=== PATIENT | male | born 1955 | race African-American/Black ===

== ENCOUNTER 2018-11-18 14:55 | Inpatient (IN) ==
[2018-11-18] MEDS ORDERED: MORPHINE IV ONE (15:18)
[2018-11-18] MEDS ORDERED: CLINDAMYCIN 600 MG/D5W 600 MG/50 ML IVPB IV ONE (15:18)
[2018-11-18] MEDS ORDERED: ZOFRAN IV ONE (15:18)
[2018-11-18 16:03] LABS: BASO# 0.01 X1000 (0.0-0.2); BASO% 0.1 % (0.0-0.8); HEMATOCRIT 38.9 % (42.0-52.0); HEMOGLOBIN 14.1 g/dL (14.0-18.0); IMM GRAN# 0.05 X1000 (0.0-0.04); IMM GRAN% 0.3 % (0.0-0.5); LYMPH# 0.74 X1000 (1.2-3.4); MCH 32.7 PG (27-31); MCHC 36.2 g/dL (33-37); MCV 90.3 FL (81-99); MONO# 1.03 X1000 (0.11-0.59); MPV 10.9 FL (7.4-10.4); NEUT# 12.83 X1000 (1.4-6.5); NEUT% 87.6 % (42.2-75.2); PLT 61 X1000 (130-400); RBC 4.31 XMIL (4.7-6.1); RDW 11.2 % (11.5-14.5); WBC 14.66 X1000 (4.8-10.8)
[2018-11-18 16:23] LABS: ESTIMATED GFR > 60
[2018-11-18 16:27] LABS: AGAP 15; ALBUMIN 3.9 g/dL (3.5-5.0); ALKALINE PHOSPHATASE 108 U/L (32-122); BUN 12 mg/dL (8-22); CHLORIDE 82 mmol/L (98-107); COSMO 256; CREATININE 0.8 mg/dL (0.7-1.2); GLUCOSE 282 mg/dL (70-104); GOT 17 U/L (10-34); GPT 19 U/L (10-44); POTASSIUM 4.6 mmol/L (3.5-5.1); SODIUM 122 mmol/L (136-145); TCO2 25 mmol/L (25-35); TOTAL PROTEIN 8.3 g/dL (6.3-8.3)
[2018-11-18] MEDS ORDERED: HUMULIN R IV ONE (16:41)
[2018-11-18] MEDS ORDERED: NS 1,000 ML IV ONE ×2 (16:41→17:31)
[2018-11-18] MEDS ORDERED: HUMULIN R (PARKWAY) ONE (16:42)
[2018-11-18 16:51] LABS: EOS 1 % (1-10); HYPOCHROM 1+; LYMPHS 7 % (21-51); MONO 8 % (1-9); SEGS 84 % (42-75)
[2018-11-18 17:15] LABS: MPV 9.7 FL (7.4-10.4)
--- NOTE | 2018-11-18 17:19 | PROVIDER DOCUMENTATION ---
This chart was entered by Eric Mercedes Scribe, acting as scribe for Leno Ha CRNP. HPI-Musculoskeletal Pain/Inj - GENERAL Chief Complaint: Extremity Pain Stated Complaint: SORE/LESION(s) Time Seen by Provider: 11/18/18 15:04 Source: patient - HX OF PRESENT ILLNESS-MUSKULOSKELTAL Nature of Presenting Problem: 63 yobm presents to ed with cc of right foot swelling, erythema, and pain x 5 days ago. Denies fever. Hx of diabetes but noncompliant with medications. Reports takes psych medications but isn't aware of what kind. Denies any injuries or any other symptoms. Pt non-toxic in appearance. Quality of Pain: reports: aching, other (swelling) Severity in ED: moderate Onset/Duration: 5 days ago Timing: still present Modifying Factors: improves with: nothing Any recent injury?: No Locality of Occurance: Home Similar Symptoms Previously?: No Recently seen or treated by another doctor?: No Review of Systems - Adult - REVIEW OF SYSTEMS - ADULT Constitutional: denies: chills, fever, fatique Eyes: reports: no symptoms reported Ears, Nose, Mouth & Throat: reports: no symptoms reported Cardiovascular: denies: chest pain, irregular heart rate, syncope Respiratory: reports: no symptoms reported Gastrointestinal: reports: no symptoms reported Genitourinary: reports: no symptoms reported Musculoskeletal: reports: see HPI, other (right foot swelling and pain). denies: joint pain, joint swelling Integumentary: denies: hair loss, itching, mole changes, nail changes, rash Neurological: denies: loss of balance, numbness, seizure Psychiatric: denies: anxiety, emotional problems, insomnia, panic attacks Endocrine: reports: no symptoms reported Hematologic/Lymphatic: reports: no symptoms reported Allergic/Immunologic: reports: no symptoms reported All Other Systems: Reviewed and Negative Past History - Adult - PAST MEDICAL HISTORY-ADULT Review of Records: reports: Nursing Assessment Review, Medications Reviewed Major Childhood Illnesses: reports: denies history Cardiovascular: reports: HTN Respiratory: reports: denies history Gastrointestinal: reports: denies history Obstetrical/Gynecological: reports: denies history Genitourinary: reports: denies history Musculoskeletal: reports: denies history Neurological: reports: denies history Psychiatric: reports: schizophrenia Endocrine/Immune: reports: Diabetes Other Conditions: reports: denies history - PRIOR SURGERIES/PROCEDURES Surgical/Procedure History: reports: reviewed, not pertinent - IMMUNIZATION STATUS Childhood Immunizations: See Nurse Assessment Flu Vaccine: See Nurse Assessment - FAMILY HISTORY Family History: reviewed, not pertinent - SOCIAL HISTORY Smoking: cigarettes, less than 1 pack/day Provider spent 3-5 mins advising pt. on dangers of tobacco.: Discussed manners to quit use, and f/u contacts for add'l counseling. Substance Use: none/never Physical Exam-Injury Related - Physical Exam-Injury Related Initial Vital Signs Reviewed: Yes General Appearance: alert, no apparent distress. negative: lethargic, slow to respond Eyes: PERRL/EOMI, pink conjunctivae Head, Ears, Nose, Mouth & Throat: normocephalic/atraumatic, moist mucous membranes Neck: non-tender, full range of motion, supple, normal inspection Respiratory: chest non-tender, lungs clear, normal breath sounds, no pleuratic chest pain, no respiratory distress, no accessory muscle use Cardiovascular: normal peripheral pulses, regular rate, rhythm, no edema, no gallop, no JVD, no murmur Peripheral Pulses: dorsalis-pedis (R): 2+, dorsalis-pedis (L): 3+ Male Genitalia: deferred Rectal Exam: deferred Lymphatic: no adenopathy Back Exam: normal inspection, no CVA tenderness, no vertebral tenderness Extremity: normal range of motion, no pedal edema, erythema (right foot), swelling (right foot), tenderness (right foot), other (Erythemic streaking from right foot up to mid anterior Right lower extremity). negative: pulse deficit Integumentary: warm/dry, erythema (right foot), swelling (right foot), warm (right foot), other (fluid filled blister on dorsal right aspect of right foot). negative: cyanosis, diaphoresis, jaundice, mottled, pallor Neurologic: grossly normal, no motor/sensory deficits Psych/Mental Status: normal mood/affect, normal thought content, normal thought process, oriented x 3 - Glascow Coma Score Best Eye Response (Stanley): (4) open spontaneously Best Verbal Response (Stanley): (5) oriented Best Motor Response (Stanley): (6) obeys commands Martinez Total: 15 Progress - PLAN OF CARE/RESULTS Progress/Plan/Lab Results: Vital Signs - 8 hr 11/18/18 14:58 11/18/18 15:58 11/18/18 16:51 Temperature 98.2 F Pulse Rate 68 103 H 104 H Respiratory Rate 16 20 20 Blood Pressure 132/85 146/85 147/83 O2 Sat by Pulse Oximetry 96 96 96 Laboratory Results - last 24 hr 11/18/18 11/18/18 11/18/18 15:43 15:43 15:43 WBC 14.66 H RBC 4.31 L Hgb 14.1 Hct 38.9 L MCV 90.3 MCH 32.7 H MCHC 36.2 RDW Std Deviation 11.2 L Plt Count 61 L MPV 10.9 H Immature Gran % (Auto) 0.3 Neut % (Auto) 87.6 H Lymph % (Auto) 5.0 L [place] % (Auto) 7.0 Eos % (Auto) 0.0 Baso % (Auto) 0.1 Immature Gran # (Auto) 0.05 H Neut # (Auto) 12.83 H Lymph # (Auto) 0.74 L [place] # (Auto) 1.03 H Eos # (Auto) 0.00 Baso # (Auto) 0.01 Segmented Neutrophils 84 H Lymphocytes 7 L Monocytes 8 Eosinophils 1 Hypochromia 1+ Large Platelets PREPARING BOX TENDER Sodium 122 L Potassium 4.6 Chloride 82 L Carbon Dioxide 25 Anion Gap 15 BUN 12 Creatinine 0.8 Estimated GFR/1.73 m2 > 60 BUN/Creatinine Ratio 15 Glucose 282 H Calculated Osmolality 256 Calcium 9.0 Total Bilirubin 1.30 H AST 17 ALT 19 Alkaline Phosphatase 108 Total Protein 8.3 Albumin 3.9 Globulin 4.0 Albumin/Globulin Ratio 1.0 Plasma Lactate 2.0 Orders Category Date Time Status FOOT COMPLETE RIGHT [RAD] Stat Exams 11/18/18 15:18 Taken BLOOD CULTURE [BLDCUL] Stat Lab 11/18/18 15:37 Ordered CBC WITH DIFF [HEME] Stat Lab 11/18/18 15:43 Completed COMPREHENSIVE METABOLIC PANEL [CHEM] Stat Lab 11/18/18 15:43 Completed LACTATE, PLASMA [CHEM] Stat Lab 11/18/18 15:43 Completed PLATELET COUNT [HEME] Stat Lab 11/18/18 15:43 Received 0.9% Sodium Chloride Inj [Ns] 1,000 ml Med 11/18/18 16:41 Active IV 999 mls/hr Clindamycin 600 mg/D5w Med 11/18/18 15:18 Discontinued 600 mg in 50 ml IV NOW Insulin Human Regular (Hersey [Humulin R (Hersey)] Med 11/18/18 16:42 Discontinued 5 units .ROUTE .STK-MED ONE Insulin Human Regular [Humulin R] Med 11/18/18 16:41 Discontinued 5 unit IV NOW ONE Morphine Med 11/18/18 15:18 Discontinued 4 mg IV NOW ONE Ondansetron [Zofran] Med 11/18/18 15:18 Discontinued 4 mg IV NOW ONE Pt in agreement with admission plan. Result Diagrams: 11/18/18 15:43 11/18/18 15:43 - CONSULTS/PCP/HOSPITALIST Notification #1 *Consult/PCP/Hospitalist*: Dr. Ny Time Discussed: 17:15 Consult Disposition: Admit (Md states he will come to ED to see pt.) Departure - Departure Date of Disposition Decision: 11/18/18 Time of Disposition Decision: 17:17 DIAGNOSIS: Hyponatremia Cellulitis Qualifiers: Site of cellulitis: unspecified site Qualified Code(s): L03.90 - Cellulitis, unspecified Diabetes Qualifiers: Diabetes mellitus type: type 2 Diabetes mellitus computer terminal operator insulin use: unspecified computer terminal operator insulin use status Diabetes mellitus complication status: with unspecified complications Qualified Code(s): E11.8 - Type 2 diabetes [facility] with unspecified complications Disposition: ADMITTED INPATIENT 09 Certified Medical Emergency: Emergent Condition: Stable Referrals and Follow-Ups: None,PCP [Primary Care Provider] - - Critical Care Note This patient required my direct & personal management of CC.: No Attestation - Physician/ ANUSHKA Attestation Patient care was provided by Advanced Practice Provider:: Yes Advanced Practice Provider:: Leno Ha Advanced Practice Provider documentation review:: The Mid-level provider documentation, treatment plan and medical decision making was reviewed by the physician who agrees with all treatment and medical decision making by the P. The physician spent face to face time with patient:: No Advanced Practice Provider documentation review:: Supervising physician onsite and consulted in the evaluation and care of this patient. The physician did not have a face to face encounter with the patient. This chart was documented by the lory scribe, (Eric Mercedes Scribe) and accurately reflects the services I performed and decisions made by me, Leno Mitchell CRNP, as attested by the provider's signature.
[2018-11-18] MEDS ORDERED: VANCOMYCIN IV PER PHARMACY MISC SCH (17:45)
[2018-11-18] MEDS ORDERED: VANCOMYCIN 2,000 MG in NS 500 ML IV ONE (18:00)
--- NOTE | 2018-11-18 19:03 | Diag Imaging Result Doc PS360 ---
EXAM: FOOT COMPLETE RIGHT INDICATION: Right foot erythema,edema,pain,cellulitis TECHNIQUE: 3 views COMPARISON: None. FINDINGS: No focal bony erosion is appreciated. There is no discrete fracture, dislocation, or significant intrinsic osseous lesion. The visualized joint spaces are essentially unremarkable. There is soft tissue edema at the dorsum of the foot. IMPRESSION: Soft tissue edema but no definite acute osseous abnormality. Electronically signed by Perez Boland 11/18/2018 7:01 PM
--- NOTE | 2018-11-18 19:37 | HISTORY AND PHYSICAL ---
CHIEF COMPLAINT: Right foot pain. HISTORY OF PRESENT ILLNESS: This is a 63-year-old gentleman with a history of diabetes mellitus and hypertension, as well as schizophrenia. He presents to the emergency room complaining of redness, swelling and pain to his right foot. He states that it started about 5 days ago. It started out with an area of soreness just between his 4th and 5th toes on his right foot and it has progressed. He denied any fevers or chills. There is an area noted about mid foot there is noted to be draining purulent serosanguineous drainage. He denies any known injury or any prior episodes of cellulitis. PAST MEDICAL HISTORY: Diabetes mellitus, hypertension. PAST SURGICAL HISTORY: Denies social history. He smokes daily. He denies alcohol or illicit drug use. ALLERGIES: No known drug allergies. HOME MEDICATIONS: Loxapine. REVIEW OF SYSTEMS: Discussed with patient with pertinent positives stated in the HPI. He denied any syncope, dizziness, chest pain, palpitations, any nausea, vomiting, diarrhea, constipation, black or bloody vomitus or stools, any fevers, chills, night sweats, any hematuria, dysuria, frequency, urgency. PHYSICAL EXAMINATION: GENERAL: This is a 63-year-old gentleman who is lying flat in the bed in no distress. VITAL SIGNS: Blood pressure is 140/50, with a heart rate of 100, respirations are 16, temperature is 98.1 oral, with room air sats 96-100%. EYES: Pupils are equal, round, react to light. EOMs are intact. Sclerae anicteric. HEENT: Head is normocephalic, atraumatic. Mucous membranes are moist. NECK: Supple, with trachea midline. CARDIOVASCULAR: Regular rate and rhythm. S1 and S2 appreciated. He has no murmur. He has no edema to left lower extremity or upper extremities. He does have edema to his right foot. PULMONARY: Breath sounds are clear with no increased work of breathing noted. Chest rises and falls symmetrically with respiration. Chest wall is nontender to palpation. GASTROINTESTINAL: Abdomen is soft, nontender, nondistended. Bowel sounds in all 4 quadrants. GENITOURINARY: He has no CVAT. No suprapubic tenderness. NEUROLOGIC: He is alert oriented x 3. SKIN: Warm and dry. He does have redness, erythema, swelling to his right foot with streaking up to his mid bryant. He does have a palpable pedal pulse. LABS: WBC is 14.6, with hemoglobin 14.1, hematocrit 38.9 and platelets of 218,000. Sodium 122, potassium 4.6, BUN 12, creatinine 0.8 with a glucose of 282, total bilirubin is 1.3. Wound culture has been collected and is pending. Blood cultures are pending. X-ray of right foot reveals soft tissue edema, but no definite acute osseous abnormality. ASSESSMENT AND PLAN: This is a 63-year-old gentleman who presents with cellulitis to his right lower extremity. 1. Right lower extremity cellulitis. 2. Hyponatremia. 3. Leukocytosis secondary to #1. 4. History of schizophrenia, on loxapine. 5. History of diabetes mellitus. 6. Hypertension. PLAN: The patient has been admitted to the medical/surgical floor. Wound culture was collected as well as blood cultures in the emergency room. We will continue vancomycin dosed per pharmacy, add Zosyn and further antibiotics will be culture driven. We will hold his loxapine as this could very well be contributing to his hyponatremia. We will give saline and recheck labs in the morning. He will be placed on pattern blood glucose with sliding scale insulin. We will obtain a CBC and a CMP in the morning. We will consult Wound Care as he does have areas between his toes that appear to be excoriated and draining. For DVT prophylaxis we will use Lovenox and GI prophylaxis Prilosec. Further treatments pending hospital course. Dictated by EMILIE Li for Timi Ny MD This chart was documented by, EMILIE Li and accurately reflects the services performed, treatment plan and medical decisions as attested by the providers signature Timi Ny MD. cc: EMILIE Li MD [facility]
--- NOTE | 2018-11-18 21:23 | HISTORY AND PHYSICAL ---
CHIEF COMPLAINT: Right foot pain. HISTORY OF PRESENT ILLNESS: Patient is a 63-year-old, black male, who presented to the emergency department complaining of swelling, pain and erythema in his right foot for the past 4 or 5 days. Denies any fevers or chills. States that the pain is now coming up to his ankle. Denies any swelling or rashes elsewhere. REVIEW OF SYSTEMS: Patient denies any fevers, chills, fatigue. Denies any cough, congestion, sore throat. Denies chest pain, palpitations, or irregular heart rate or syncope. Denies any nausea, vomiting, diarrhea, dysuria, urinary frequency, urgency, constipation, melena, hematochezia. States he has pain and swelling in his right foot that seems to be worsening. Denies any drainage. PAST MEDICAL HISTORY: Diabetes and hypertension. Schizophrenia. SURGICAL HISTORY: No current surgery history. FAMILY HISTORY: Noncontributory. SOCIAL HISTORY: The patient smokes a pack a day. Denies alcohol use. PHYSICAL: Vital Signs: Temperature 98, pulse 68, respiratory rate 16, BP 146/85, saturation 96% on room air. General: Patient is awake, alert, currently in no distress. HEENT: Normocephalic. Neck: Supple. CARDIOVASCULAR: Regular rate. No murmurs. Chest: Clear, nonlabored. Abdomen: Soft, nondistended, nontender. Extremities: Moves all extremities. His right foot is swollen and tender to touch. He has a fluid-filled blister on the dorsal aspect of his right foot. It is warm has mild redness and streaking up to his mid calf on the right leg. Neurologic: He is awake, alert, oriented. He is in no current distress. He follows commands. No focal deficits. ASSESSMENT: 1. Leukocytosis, white count 14. 2. Hyponatremia, likely secondary to his atypical antipsychotic. 3. Thrombocytopenia. 4. Diabetes with hyperglycemia in a patient who is not on any current medications. PLAN: We will continue patient in the hospital, place him on antibiotics, Zosyn and vancomycin. We will follow. We will hold his atypical antipsychotic given his hyponatremia, place him on normal saline and recheck in the a.m. cc: Timi Ny MD
[2018-11-18] MEDS: HUMALOG (PARKWAY) SUBQ SCH (21:54)
[2018-11-18] MEDS: ZOSYN 3.375 GM in NS 50 ML IV SCH (22:28)
[2018-11-19] MEDS: ZOSYN 3.375 GM in NS 50 ML IV SCH ×4 (05:00→21:39)
[2018-11-19] MEDS: PRILOSEC PO SCH (06:00)
[2018-11-19] MEDS: NS 1,000 ML IV SCH ×3 (06:37→21:40)
[2018-11-19] MEDS: HUMALOG (PARKWAY) SUBQ SCH ×4 (06:38→21:39)
[2018-11-19 07:19] LABS: AGAP 13; ALKALINE PHOSPHATASE 89 U/L (32-122); BUN 12 mg/dL (8-22); CHLORIDE 91 mmol/L (98-107); COSMO 255; CREATININE 0.7 mg/dL (0.7-1.2); ESTIMATED GFR > 60; GLUCOSE 105 mg/dL (70-104); GOT 14 U/L (10-34); GPT 14 U/L (10-44); POTASSIUM 4.2 mmol/L (3.5-5.1); SODIUM 127 mmol/L (136-145); TCO2 23 mmol/L (25-35); TOTAL PROTEIN 6.5 g/dL (6.3-8.3)
[2018-11-19 08:06] LABS: HEMATOCRIT 33.6 % (42.0-52.0); HEMOGLOBIN 12.2 g/dL (14.0-18.0); MCH 33.2 PG (27-31); MCHC 35.8 g/dL (33-37); MCV 91.6 FL (81-99); MPV 9.7 FL (7.4-10.4); RBC 3.67 XMIL (4.7-6.1); RDW 11.2 % (11.5-14.5); WBC 13.69 X1000 (4.8-10.8)
[2018-11-19] MEDS: LOVENOX SUBQ SCH (09:46)
[2018-11-19] MEDS: VANCOMYCIN 1,250 MG in NS 250 ML IV SCH (13:27)
[2018-11-19] MEDS: TYLENOL WITH CODEINE #3 PO PRN (13:27)
--- NOTE | 2018-11-19 22:36 | PROGRESS NOTE ---
DATE: 11/19/2018 SUBJECTIVE: Patient notes that the pain and swelling in his right foot and right calf have improved. Only has swelling, redness up to right knee. Denies any fevers, chills. PHYSICAL: Temperature 98, pulse 91, respiratory 20, BP 143/65.General: Patient notes that he is feeling better. HEENT: Normocephalic atraumatic. Neck: Supple. CV: Regular rate. Chest: Clear. Abdomen: Soft . Extremities: Decreased swelling, improved redness. ASSESSMENT: 1. Right lower extremity cellulitis . 2. Hyponatremia improved. 3. Schizophrenia on loxapine. 4. Diabetes. 5. Hypertension. PLAN: At this point will continue vancomycin and Zosyn until cultures are negative. Will continue hold loxapine today as sodium is improved and this certainly could be the cause of his low sodium and will follow. Recheck labs in the morning. cc: Timi Ny MD
[2018-11-20] MEDS: TYLENOL WITH CODEINE #3 PO PRN ×2 (00:30→09:31)
[2018-11-20] MEDS: ZOSYN 3.375 GM in NS 50 ML IV SCH ×4 (04:38→21:23)
[2018-11-20] MEDS: PRILOSEC PO SCH (06:06)
[2018-11-20] MEDS: VANCOMYCIN 1,250 MG in NS 250 ML IV SCH (06:06)
[2018-11-20] MEDS: NS 1,000 ML IV SCH (06:06)
[2018-11-20] MEDS: HUMALOG (PARKWAY) SUBQ SCH ×4 (06:19→20:59)
[2018-11-20] MEDS: SODIUM CHLORIDE PO SCH ×2 (09:23→21:23)
[2018-11-20] MEDS: MIRALAX PO SCH (09:23)
[2018-11-20] MEDS: COLACE PO SCH ×2 (09:24→21:23)
[2018-11-20] MEDS: LOVENOX SUBQ SCH (09:24)
[2018-11-20] MEDS: LOXITANE PO SCH (09:24)
[2018-11-20 09:58] LABS: AGAP 13; ALBUMIN 2.7 g/dL (3.5-5.0); ALKALINE PHOSPHATASE 83 U/L (32-122); BUN 9 mg/dL (8-22); CALCIUM 7.9 mg/dL (8.8-10.2); CHLORIDE 90 mmol/L (98-107); COSMO 259; CREATININE 0.8 mg/dL (0.7-1.2); ESTIMATED GFR > 60; GLUCOSE 199 mg/dL (70-104); GOT 19 U/L (10-34); GPT 17 U/L (10-44); POTASSIUM 3.9 mmol/L (3.5-5.1); SODIUM 127 mmol/L (136-145); TCO2 24 mmol/L (25-35); TOTAL PROTEIN 6.4 g/dL (6.3-8.3)
[2018-11-20 10:14] LABS: HEMATOCRIT 30.6 % (42.0-52.0); HEMOGLOBIN 10.9 g/dL (14.0-18.0); MCH 32.4 PG (27-31); MCHC 35.6 g/dL (33-37); MCV 91.1 FL (81-99); RBC 3.36 XMIL (4.7-6.1); RDW 11.1 % (11.5-14.5); WBC 13.33 X1000 (4.8-10.8)
--- NOTE | 2018-11-20 23:24 | PROGRESS NOTE ---
DATE: 11/20/2018 SUBJECTIVE: Patient notes his right foot is improving. Denies any fevers or chills. States the redness is improving. PHYSICAL EXAM: VITAL SIGNS: Temperature 98.2, pulse 98, respiratory 18, BP 143/70. General: Patient is awake, alert, pleasant to talk with. CARDIOVASCULAR: Regular rate. Chest: Clear. Abdomen: Soft. Extremities: Moves all extremities. Skin: His right foot erythema has markedly improved, there is no surrounding erythema. At this point, he has no erythema of his calf or leg. ASSESSMENT: 1. Cellulitis right lower extremity. 2. Hyponatremia, continues to improve. 3. Schizophrenia, on loxapine. At this point, we will restart loxapine. 4. Leukocytosis, improved. PLAN: Continue vancomycin and Zosyn until cultures are negative. We will restart his loxapine given that his schizophrenia has been stable on this. We will add sodium chloride tablets and recheck in the morning. cc: Timi Ny MD
[2018-11-21] MEDS: VANCOMYCIN 1,250 MG in NS 250 ML IV SCH (02:20)
[2018-11-21] MEDS: ZOSYN 3.375 GM in NS 50 ML IV SCH (04:35)
[2018-11-21] MEDS: TYLENOL WITH CODEINE #3 PO PRN (04:55)
[2018-11-21] MEDS: PRILOSEC PO SCH (06:07)
[2018-11-21 06:16] LABS: HEMATOCRIT 28.7 % (42.0-52.0); HEMOGLOBIN 10.4 g/dL (14.0-18.0); MCH 32.5 PG (27-31); MCHC 36.2 g/dL (33-37); MCV 89.7 FL (81-99); MPV 11.3 FL (7.4-10.4); RBC 3.2 XMIL (4.7-6.1); RDW 10.8 % (11.5-14.5); WBC 12.73 X1000 (4.8-10.8)
[2018-11-21 06:24] LABS: ESTIMATED GFR > 60
[2018-11-21] MEDS: HUMALOG (PARKWAY) SUBQ SCH ×4 (06:34→20:49)
[2018-11-21 06:39] LABS: AGAP 11; ALBUMIN 2.4 g/dL (3.5-5.0); ALKALINE PHOSPHATASE 94 U/L (32-122); BUN 10 mg/dL (8-22); CALCIUM 7.5 mg/dL (8.8-10.2); CHLORIDE 90 mmol/L (98-107); COSMO 255; CREATININE 0.8 mg/dL (0.7-1.2); GLUCOSE 248 mg/dL (70-104); GOT 24 U/L (10-34); GPT 20 U/L (10-44); POTASSIUM 3.8 mmol/L (3.5-5.1); SODIUM 123 mmol/L (136-145); TCO2 22 mmol/L (25-35); TOTAL PROTEIN 5.9 g/dL (6.3-8.3)
[2018-11-21] MEDS: KEFLEX PO SCH ×2 (09:02→20:48)
[2018-11-21] MEDS: LOXITANE PO SCH (09:02)
[2018-11-21] MEDS: LOVENOX SUBQ SCH (09:02)
[2018-11-21] MEDS: MIRALAX PO SCH (09:02)
[2018-11-21] MEDS: GLUCOPHAGE PO SCH ×2 (09:03→16:45)
[2018-11-21] MEDS: COLACE PO SCH ×2 (09:03→20:49)
[2018-11-21] MEDS ORDERED: VANCOMYCIN 1 GM/NS 1 GM/250 ML IVPB IV SCH (10:00)
[2018-11-21] MEDS: SODIUM CHLORIDE PO SCH ×2 (10:11→20:49)
--- NOTE | 2018-11-21 19:00 | PROGRESS NOTE ---
DATE: 11/21/2018 SUBJECTIVE: Patient notes that his foot is feeling better. Denies any fevers or chills. Denies any redness elsewhere. States he does not check his blood sugar or take medication for his blood sugars at home. PHYSICAL EXAMINATION: Temperature 98.4, pulse 94, respiratory rate 18, BP 142/73.General: Patient is awake, very pleasant to talk with. He is in no current respiratory distress. HEENT: Normocephalic. Neck: Supple. Cardiovascular: Regular rate. No murmurs. Chest: Clear, nonlabored. Abdomen: Soft, nondistended. Extremities: Moves all extremities. Skin: His right foot erythema has improved currently. There is no erythema outside the bandage. His right calf and leg also have improved. ASSESSMENT: 1. Cellulitis, right foot. 2. Diabetes. We will start Glucophage. We will check an A1c. His blood sugar is actually elevated at 248. 3. Hyponatremia. Sodium has dropped a little bit back to 123. Will add sodium chloride tablets. We did restart his loxapine due to his schizophrenia. Further orders as needed. cc: Timi Ny MD
[2018-11-22] MEDS: TYLENOL WITH CODEINE #3 PO PRN ×2 (00:55→15:33)
[2018-11-22 06:25] LABS: HEMATOCRIT 30.4 % (42.0-52.0); HEMOGLOBIN 10.9 g/dL (14.0-18.0); MCH 32.2 PG (27-31); MCHC 35.9 g/dL (33-37); MCV 89.9 FL (81-99); MPV 9.4 FL (7.4-10.4); RBC 3.38 XMIL (4.7-6.1); RDW 10.8 % (11.5-14.5); WBC 12.86 X1000 (4.8-10.8)
[2018-11-22 06:28] LABS: AGAP 9; ALBUMIN 2.9 g/dL (3.5-5.0); ALKALINE PHOSPHATASE 98 U/L (32-122); BUN 8 mg/dL (8-22); CALCIUM 8.5 mg/dL (8.8-10.2); CHLORIDE 91 mmol/L (98-107); COSMO 256; CREATININE 0.8 mg/dL (0.7-1.2); ESTIMATED GFR > 60; GLUCOSE 149 mg/dL (70-104); GOT 24 U/L (10-34); GPT 23 U/L (10-44); POTASSIUM 4.2 mmol/L (3.5-5.1); SODIUM 127 mmol/L (136-145); TCO2 26 mmol/L (25-35); TOTAL PROTEIN 7.2 g/dL (6.3-8.3)
[2018-11-22] MEDS: PRILOSEC PO SCH (06:35)
[2018-11-22] MEDS: HUMALOG (PARKWAY) SUBQ SCH ×4 (06:37→20:35)
[2018-11-22] MEDS: COLACE PO SCH ×2 (08:26→20:35)
[2018-11-22] MEDS: SODIUM CHLORIDE PO SCH ×2 (08:26→20:35)
[2018-11-22] MEDS: GLUCOPHAGE PO SCH ×2 (08:26→16:04)
[2018-11-22] MEDS: LOXITANE PO SCH (08:26)
[2018-11-22] MEDS: MIRALAX PO SCH (08:26)
[2018-11-22] MEDS: KEFLEX PO SCH ×2 (08:26→20:35)
--- NOTE | 2018-11-22 13:25 | Diag Imaging Result Doc PS360 ---
FOOT COMPLETE RIGHT - 11/22/2018 INDICATION: cellulitis, ? osteomyelitis TECHNIQUE: Three views COMPARISON: 11/18/2018 FINDINGS: There is extensive soft tissue swelling of the dorsum of foot stable from prior. No soft tissue gas or foreign body. No fractures or bony erosions. IMPRESSION: No change from prior. Nonspecific soft tissue swelling of the foot. Electronically signed by Raphael Atkinson 11/22/2018 1:23 PM
--- NOTE | 2018-11-22 23:06 | PROGRESS NOTE ---
DATE: 11/22/2018 SUBJECTIVE: Patient notes he is still swollen tenderness is improved. PHYSICAL: Vital Signs: Reviewed. Temperature 98.5 degrees, pulse 102 respiratory 18, BP 131/79. General: Patient is awake, alert, currently no distress overall feeling better. HEENT: Normocephalic. Neck: Supple. CV: Regular rate. Chest: Clear. Abdomen: Soft. Extremities: Moves all extremities. Skin: Right foot erythema has improved. Edema is still present. ASSESSMENT: 1. Cellulitis right lower extremity. 2. Hyponatremia improved sodium is up to 1.7. 3. Schizophrenia on loxapine likely contributing to his hypoglycemia . 4. Diabetes, blood sugars much improved with Glucophage, A1c is 8.0. PLAN: Will continue patient in the hospital, continue following, continue antibiotics, hopefully can transition home over the next day or 2. cc: Timi Ny MD
[2018-11-23] MEDS: TYLENOL WITH CODEINE #3 PO PRN ×2 (05:24→22:00)
[2018-11-23] MEDS: PRILOSEC PO SCH (06:12)
[2018-11-23] MEDS: HUMALOG (PARKWAY) SUBQ SCH ×4 (06:12→20:29)
[2018-11-23 07:22] LABS: BASO# 0.02 X1000 (0.0-0.2); BASO% 0.2 % (0.0-0.8); EOS# 0.04 X1000 (0.0-0.7); EOS% 0.3 % (0.0-10.0); HEMATOCRIT 32.1 % (42.0-52.0); HEMOGLOBIN 11.4 g/dL (14.0-18.0); IMM GRAN# 0.04 X1000 (0.0-0.04); IMM GRAN% 0.3 % (0.0-0.5); LYMPH# 1.13 X1000 (1.2-3.4); LYMPH% 9.3 % (20.5-51.1); MCH 31.8 PG (27-31); MCHC 35.5 g/dL (33-37); MCV 89.7 FL (81-99); MONO% 8.2 % (1.7-9.3); MPV 10.7 FL (7.4-10.4); NEUT# 9.92 X1000 (1.4-6.5); NEUT% 81.7 % (42.2-75.2); RBC 3.58 XMIL (4.7-6.1); WBC 12.15 X1000 (4.8-10.8)
[2018-11-23 07:42] LABS: ESTIMATED GFR > 60
[2018-11-23 07:50] LABS: AGAP 14; ALBUMIN 2.6 g/dL (3.5-5.0); ALKALINE PHOSPHATASE 99 U/L (32-122); BUN 10 mg/dL (8-22); CALCIUM 8.3 mg/dL (8.8-10.2); CHLORIDE 90 mmol/L (98-107); COSMO 257; CREATININE 0.7 mg/dL (0.7-1.2); GLUCOSE 181 mg/dL (70-104); GOT 26 U/L (10-34); GPT 25 U/L (10-44); PLT 250 X1000 (130-400); POTASSIUM 4.2 mmol/L (3.5-5.1); SODIUM 126 mmol/L (136-145); TCO2 22 mmol/L (25-35); TOTAL PROTEIN 6.9 g/dL (6.3-8.3)
[2018-11-23] MEDS: GLUCOPHAGE PO SCH ×2 (07:58→16:58)
[2018-11-23] MEDS: COLACE PO SCH ×3 (07:58→20:31)
[2018-11-23] MEDS: KEFLEX PO SCH ×2 (07:58→08:11)
[2018-11-23] MEDS: SODIUM CHLORIDE PO SCH ×3 (07:58→20:29)
[2018-11-23] MEDS: LOXITANE PO SCH ×2 (07:58→08:11)
[2018-11-23] MEDS: MIRALAX PO SCH (07:59)
[2018-11-23] MEDS ORDERED: FLU VACCINE IM ONE (09:00)
[2018-11-23] MEDS: ROCEPHIN 1 GM in NS 50 ML IV SCH (11:48)
[2018-11-23] MEDS: CLEOCIN PO SCH ×2 (12:39→16:58)
[2018-11-23] MEDS ORDERED: CLEOCIN PO SCH (13:00)
--- NOTE | 2018-11-24 00:12 | PROGRESS NOTE ---
DATE: 11/23/2018 SUBJECTIVE: The patient has no complaints. However, when manipulating his foot it is obviously painful. PHYSICAL EXAMINATION: Vital Signs: Temperature 98.2 degrees, pulse 103, respiratory 18, BP 147/93. General: Patient is pleasant to talk with. He is in no distress. Denies any current complaints although as noted when manipulating his right foot it is obviously painful. HEENT: Normocephalic. Neck: Supple. Cardiovascular: Regular rate. Chest: Clear. Abdomen: Soft. Extremities: Moves all extremities. His right foot is still swollen, erythematous and edematous, tender to the touch. No drainage. Neurologic: No focal changes. ASSESSMENT: 1. Right foot cellulitis. 2. Hyponatremia. 3. Schizophrenia, on loxapine which is likely contributing if not causing his hypoglycemia. 4. Diabetes with an elevated A1c at 8.0. 5. Leukocytosis, stable at 12. 6. Hypertension. PLAN: At this point we will stop his Keflex. We will place him back on Rocephin and clindamycin. We will check an MRI of his foot to rule out osteomyelitis. Certainly is still swollen, painful. Hopefully, he can discharge home over the next 2 or 3 days. cc: Timi Ny MD
[2018-11-24] MEDS: TYLENOL WITH CODEINE #3 PO PRN (05:29)
[2018-11-24] MEDS: PRILOSEC PO SCH ×2 (05:30→06:04)
[2018-11-24] MEDS: HUMALOG (PARKWAY) SUBQ SCH ×4 (06:17→21:43)
[2018-11-24 06:25] LABS: BASO# 0.01 X1000 (0.0-0.2); BASO% 0.1 % (0.0-0.8); EOS# 0.05 X1000 (0.0-0.7); EOS% 0.4 % (0.0-10.0); IMM GRAN# 0.08 X1000 (0.0-0.04); IMM GRAN% 0.7 % (0.0-0.5); LYMPH# 1.12 X1000 (1.2-3.4); LYMPH% 9.5 % (20.5-51.1); MONO# 1.19 X1000 (0.11-0.59); MONO% 10.1 % (1.7-9.3); NEUT# 9.37 X1000 (1.4-6.5); NEUT% 79.2 % (42.2-75.2)
[2018-11-24 06:27] LABS: ESTIMATED GFR > 60; HEMATOCRIT 30.7 % (42.0-52.0); HEMOGLOBIN 11.1 g/dL (14.0-18.0); MCH 32.4 PG (27-31); MCHC 36.2 g/dL (33-37); MCV 89.5 FL (81-99); MPV 9.4 FL (7.4-10.4); PLT 294 X1000 (130-400); RBC 3.43 XMIL (4.7-6.1); WBC 10.64 X1000 (4.8-10.8)
[2018-11-24 06:39] LABS: AGAP 13; ALBUMIN 2.8 g/dL (3.5-5.0); ALKALINE PHOSPHATASE 92 U/L (32-122); BUN 9 mg/dL (8-22); CALCIUM 8.6 mg/dL (8.8-10.2); CHLORIDE 90 mmol/L (98-107); COSMO 255; CREATININE 0.8 mg/dL (0.7-1.2); GLUCOSE 120 mg/dL (70-104); GOT 27 U/L (10-34); GPT 29 U/L (10-44); POTASSIUM 4.1 mmol/L (3.5-5.1); SODIUM 127 mmol/L (136-145); TCO2 25 mmol/L (25-35); TOTAL PROTEIN 7.2 g/dL (6.3-8.3)
[2018-11-24] MEDS: MIRALAX PO SCH (09:16)
[2018-11-24] MEDS: LOXITANE PO SCH (09:17)
[2018-11-24] MEDS: CLEOCIN PO SCH ×3 (09:17→17:09)
[2018-11-24] MEDS: GLUCOPHAGE PO SCH ×2 (09:17→17:09)
[2018-11-24] MEDS: SODIUM CHLORIDE PO SCH ×2 (09:17→20:10)
[2018-11-24] MEDS: COLACE PO SCH ×2 (09:17→20:10)
[2018-11-24] MEDS: ROCEPHIN 1 GM in NS 50 ML IV SCH (11:40)
--- NOTE | 2018-11-24 18:13 | PROGRESS NOTE ---
DATE: 11/24/2018 SUBJECTIVE: Patient has no new complaints. When I manipulate his foot, he appears to be in less pain than he was previously. PHYSICAL EXAMINATION: Vital Signs: Temperature 98 degrees, pulse 101, respiratory rate 18, BP 141/82. General: Patient is awake, alert, very pleasant to talk with. He is in no current distress. HEENT: Normocephalic. Neck: Supple. CARDIOVASCULAR: Regular rate. Chest: Clear. Abdomen: Soft. Extremities: Moves all extremities. He has less edema in his right foot than previous. ASSESSMENT: 1. Cellulitis, right foot. 2. Schizophrenia, on loxapine. 3. Hyponatremia. 4. Diabetes, with an A1c at home at 8.0. Blood sugars have improved since the addition of Glucophage. 5. Hypertension. PLAN: Overall, patient's plan appears to be better. We will continue clindamycin and Rocephin, as it does appear to be improving since switching to these antibiotics. We will continue to follow. We will check an MRI of his foot tomorrow. If there is no osteomyelitis, then he certainly may be able to discharge home on oral antibiotics. We will continue sodium chloride for his hyponatremia as he needs to remain on loxapine due to his schizophrenia. cc: Timi Ny MD
[2018-11-24] MEDS ORDERED: TYLENOL PO PRN (20:45)
[2018-11-25] MEDS: TYLENOL WITH CODEINE #3 PO PRN ×3 (00:08→21:08)
[2018-11-25] MEDS: PRILOSEC PO SCH (06:04)
[2018-11-25] MEDS: HUMALOG (PARKWAY) SUBQ SCH ×4 (06:04→21:08)
[2018-11-25] MEDS: LOXITANE PO SCH (08:33)
[2018-11-25] MEDS: SODIUM CHLORIDE PO SCH ×2 (08:33→21:08)
[2018-11-25] MEDS: MIRALAX PO SCH (08:34)
[2018-11-25] MEDS: CLEOCIN PO SCH ×3 (08:35→16:45)
[2018-11-25] MEDS: COLACE PO SCH ×2 (08:35→21:08)
[2018-11-25] MEDS: GLUCOPHAGE PO SCH ×2 (08:35→16:45)
--- NOTE | 2018-11-25 10:01 | Diag Imaging Result Doc PS360 ---
EXAM: MRI LOW EXTREMTY W/O CON-RIGHT HISTORY: Rule out Right foot cellulitus TECHNIQUE: MRI right foot without contrast COMPARISON: Plain films from 11/22/2018 FINDINGS: Axial, sagittal, and coronal images obtained in multiple sequences. There is prominent soft tissue swelling with fluid along the dorsum of the foot. There is a small amount of soft tissue swelling inferior to the metatarsal phalangeal joints. No definite abnormal signal within the adjacent bones. IMPRESSION: Cellulitis. No definite evidence of osteomyelitis. Electronically signed by Cristofer Navarrete 11/25/2018 9:59 AM
[2018-11-25] MEDS: ROCEPHIN 1 GM in NS 50 ML IV SCH (11:52)
[2018-11-25] MEDS ORDERED: VANCOMYCIN IV PER PHARMACY MISC SCH (13:45)
--- NOTE | 2018-11-25 14:05 | PROGRESS NOTE ---
DATE: 11/25/2018 SUBJECTIVE: The patient has no major complaints. OBJECTIVE: Vital Signs: Blood pressure is 159/84, heart rate of 109, respiratory rate 19, temperature 98.3 degrees. Cardiovascular: Regular rate and rhythm. Pulmonary: Bilateral breath sounds clear to auscultation. GI: Soft, nontender, nondistended. Bowel sounds were positive. Laboratory Data: White count is down to 10. Basic looks normal. ASSESSMENT AND PLAN: 1. On his examination, his right foot has a large, clear blister on the superior portion and inferior portion, and kind of a streak of eschar between them. There was no active drainage. I am not sure if this may not need to be debrided but wound care is seen it. That was about a week ago. I cannot see if they have had a re-evaluation. I just want to get a sense of this needs debridement. I am going to get a surgical consult. MRI was negative for any osteomyelitis. White count is improved. Currently on clindamycin and Rocephin which I think is reasonable to discharge on one of those. The cultures have been negative. 2. Hyponatremia. Really kind unclear what the etiology is. We will check urine electrolytes and follow. He has been stable though. 3. Diabetes. He is on metformin. We will continue to monitor. 4. Disposition. Pending surgical evaluation. If everything looks stable, hopefully home soon. cc: Vipin Shi MD
[2018-11-26] MEDS: TYLENOL WITH CODEINE #3 PO PRN ×3 (01:44→19:51)
[2018-11-26] MEDS: HUMALOG (PARKWAY) SUBQ SCH ×4 (06:36→20:57)
[2018-11-26] MEDS: PRILOSEC PO SCH (06:38)
[2018-11-26 07:33] LABS: BASO# 0.03 X1000 (0.0-0.2); BASO% 0.3 % (0.0-0.8); EOS# 0.07 X1000 (0.0-0.7); EOS% 0.7 % (0.0-10.0); HEMATOCRIT 32.8 % (42.0-52.0); HEMOGLOBIN 11.6 g/dL (14.0-18.0); IMM GRAN# 0.03 X1000 (0.0-0.04); IMM GRAN% 0.3 % (0.0-0.5); LYMPH# 1.18 X1000 (1.2-3.4); LYMPH% 12.1 % (20.5-51.1); MCH 32.2 PG (27-31); MCHC 35.4 g/dL (33-37); MCV 91.1 FL (81-99); MONO# 0.82 X1000 (0.11-0.59); MONO% 8.4 % (1.7-9.3); NEUT# 7.66 X1000 (1.4-6.5); NEUT% 78.2 % (42.2-75.2); PLT 290 X1000 (130-400); RDW 11.2 % (11.5-14.5); WBC 9.79 X1000 (4.8-10.8)
[2018-11-26 07:39] LABS: AGAP 12; BUN 9 mg/dL (8-22); CALCIUM 8.5 mg/dL (8.8-10.2); CHLORIDE 91 mmol/L (98-107); COSMO 262; CREATININE 0.7 mg/dL (0.7-1.2); ESTIMATED GFR > 60; GLUCOSE 137 mg/dL (70-104); POTASSIUM 4.2 mmol/L (3.5-5.1); SODIUM 130 mmol/L (136-145); TCO2 27 mmol/L (25-35)
[2018-11-26] MEDS: LOXITANE PO SCH (08:44)
[2018-11-26] MEDS: GLUCOPHAGE PO SCH ×2 (08:45→16:42)
[2018-11-26] MEDS: CLEOCIN PO SCH ×2 (08:45→14:34)
[2018-11-26] MEDS: SODIUM CHLORIDE PO SCH ×3 (08:45→23:58)
[2018-11-26] MEDS: COLACE PO SCH ×3 (08:45→23:58)
[2018-11-26] MEDS: MIRALAX PO SCH ×2 (08:46)
[2018-11-26] MEDS: ROCEPHIN 1 GM in NS 50 ML IV SCH (10:09)
--- NOTE | 2018-11-26 13:43 | Diag Imaging Result Doc PS360 ---
EXAM: CT ANGIOGRAM LOWER EXT - RIGHT - 11/26/2018 HISTORY: evaluate for vessel occlusion TECHNIQUE: CT angiogram right lower extremity with intravenous contrast. Axial, coronal, and 3-D MIP images are obtained. The left lower extremity is also included on the exam. COMPARISON: None. FINDINGS: There is atherosclerotic plaquing with mild stenosis as the visualized portions of the bilateral common iliac arteries. There is atherosclerotic plaquing with mild narrowing of the bilateral common femoral arteries. There is atherosclerotic plaquing with mild to moderate stenosis along the proximal right superficial femoral artery. There is occlusion of the distal right superficial femoral artery. There is reconstitution of the proximal right popliteal artery via collaterals. There is mild to moderate stenosis along the right popliteal artery. There is primarily two-vessel lower leg runoff on the right consisting of the posterior tibial and peroneal arteries. There is subcutaneous soft tissue swelling noted at the right forefoot There is atherosclerotic plaquing with mild stenosis along the proximal left superficial femoral artery. There is atherosclerotic plaquing with mild stenosis along the distal left superficial femoral artery there is atherosclerotic plaquing with mild to moderate stenosis along the left popliteal artery. There is primarily two-vessel lower leg runoff on the left consisting of the posterior tibial and peroneal arteries. IMPRESSION: Multiple areas of atherosclerotic narrowing as detailed above. There is occlusion of the distal right superficial femoral artery, with reconstitution at the proximal right popliteal artery. Electronically signed by Cuco Cowan 11/26/2018 1:41 PM
[2018-11-26] MEDS ORDERED: VANCOMYCIN IV PER PHARMACY MISC SCH (18:30)
[2018-11-26] MEDS ORDERED: VANCOMYCIN 1,850 MG in NS 500 ML IV ONE (19:30)
--- NOTE | 2018-11-26 19:47 | GENERAL SURGERY CONSULTATION ---
DATE: 11/26/2018 REASON FOR CONSULTATION: Right foot wound and infection. HISTORY OF PRESENT ILLNESS: This is a 63-year-old man with history of diabetes, hypertension, schizophrenia, who presents to the emergency room with increasing redness, swelling, and pain to his right foot at least 4 to 5 days prior to admission and possibly up to 2 weeks according to him. It started off with some soreness around his 4th and 5th toes and got worse and worse. He has recently had some purulent discharge and we have been consulted for further evaluation. In addition, he has had some vascular evaluation including ABIs showing a decreased ankle-brachial index on the right of 0.62 and 0.[address] Follow[address] CT angiogram of the right leg shows occlusion of the right distal superficial femoral artery with reconstitution into the right proximal popliteal artery. There is also a 2 vessel runoff in the right leg. In the posterior tibial and peroneal arteries on the left side, there is mild stenosis of the superficial femoral artery and moderate stenosis of the popliteal artery with 2 vessel runoff below the knee on the left. The MRI of the right foot was negative for osteomyelitis. PAST MEDICAL HISTORY: As above in HPI. PAST SURGICAL HISTORY: None. HOME MEDICATIONS: Loxapine. ALLERGIES: No known drug allergies. SOCIAL HISTORY: Smokes a pack per day. Denies alcohol use. FAMILY HISTORY: Reviewed and non-contributory. REVIEW OF SYSTEMS: Ten systems reviewed and negative except as noted above. PHYSICAL EXAMINATION: Vital Signs: Temperature 98 degrees, pulse 97, respirations 18, blood pressure 143/77 O2 saturation 100%. General: He is a well-developed male in no acute distress who looks his stated age. HEENT: Normocephalic, atraumatic. Extraocular muscles intact. Pupils equal, round, reactive to light. Sclerae anicteric. Moist mucous membranes. Neck: Supple no thyromegaly. Cardiovascular: Regular rate and rhythm. Respiratory: Bilateral equal breath sounds. No work of breathing. Gastrointestinal: Abdomen soft, nontender, nondistended. No organomegaly or mass. Extremities: No clubbing or cyanosis. There is edema of the right dorsal foot. Musculoskeletal: Moves all extremities equally and well. Skin: There is eschar and fluctuance of the dorsal right foot with some purulent drainage expressible. I could palpate his left his left posterior tibial, but could not palpate the right side dorsalis pedis or posterior tibial. LABORATORY: White cell count 9.8, hemoglobin 11.6, hematocrit 32.8. Electrolytes reviewed and notable for sodium of 130. Hemoglobin A1c 8. Average glucoses in the upper 200s. ASSESSMENT AND PLAN: A 63-year-old male with right diabetic foot infection and necrotic skin. This will require debridement and drainage in the operating room. I have discussed risks and benefits with him including bleeding, ongoing chronic wound, nonhealing nature of the wound to the peripheral arterial disease. Also, he needs better control of his blood sugars, which we will ask the hospitalist to assist with. cc: Oleg Camarillo MD MTDD
[2018-11-26] MEDS: ZOSYN 3.375 GM in NS 50 ML IV SCH (19:51)
--- NOTE | 2018-11-26 19:58 | PROGRESS NOTE ---
DATE: 11/26/2018 OBJECTIVE: Vital signs: Blood pressure 117/74, heart rate 98, respiratory rate 20, temperature 97.9 degrees. Cardiovascular: Regular rate and rhythm. Pulmonary: Bilateral breath sounds clear to auscultation. Gastrointestinal: Soft, nontender, nondistended. Bowel sounds are positive. LABORATORY DATA: White count 9, H and H 11 and 32, platelets 290,000. Sodium is 130. Urine data is most consistent with SIADH, at least high urine osmolality and high urine sodium. ASSESSMENT AND PLAN: 1. Diabetic foot ulcer, which has worsened despite IV antibiotics. He has been on Rocephin and clindamycin. Saturations have been stable. Laboratory data looks good. Diabetic foot ulcer, though, I think it has gotten worse. I did not see it on admission. Wound Care did reassess this evening who had seen him on admission and feels it is worse, and he has purulent drainage. I requested consult for surgery, and Dr. Camarillo saw the patient today and feels that the patient will need debridement, and he is being transferred to [facility] for that purpose. He wants very aggressive diabetic control, which he has not gotten outpatient because he has not been very compliant. His sugars are still somewhat elevated here, although he has been in the 150s at times. I think the only thing he has been on besides sliding scale is metformin so we will increase his dose of metformin, although we have to hold it right now because I think he had a CT angiogram, so we may have to transition him to Lantus in the meantime. 2. Diabetes. I think metformin as an outpatient is reasonable, but right now we have to hold it because of his contrast, and we will do Lantus and get a dietary consult, increase compliance especially with diet and checking his sugars. 3. Hyponatremia, really unclear source. It is somewhat consistent with symptom of inappropriate antidiuretic hormone secretion based on his urine lytes. He has improved with normal saline supplementation so we will continue to follow that. I have switched him to vancomycin and Zosyn for his diabetic foot ulcer and that just because until we can get final culture results, which we may or may not. He has been on Rocephin and clindamycin, but I do not think that has been completely effective. DISPOSITION: Pending his surgical course. cc: Vipin Shi MD MTDD
[2018-11-27] MEDS: ZOSYN 3.375 GM in NS 50 ML IV SCH ×4 (00:41→17:33)
[2018-11-27] MEDS: HUMALOG (PARKWAY) SUBQ SCH (06:30)
[2018-11-27] MEDS: PRILOSEC PO SCH (06:30)
[2018-11-27 06:53] LABS: BASO# 0.02 X1000 (0.0-0.2); BASO% 0.2 % (0.0-0.8); EOS# 0.04 X1000 (0.0-0.7); EOS% 0.4 % (0.0-10.0); HEMATOCRIT 30.2 % (42.0-52.0); HEMOGLOBIN 10.5 g/dL (14.0-18.0); IMM GRAN# 0.03 X1000 (0.0-0.04); IMM GRAN% 0.3 % (0.0-0.5); LYMPH# 0.99 X1000 (1.2-3.4); LYMPH% 10.8 % (20.5-51.1); MCH 31.7 PG (27-31); MCHC 34.8 g/dL (33-37); MCV 91.2 FL (81-99); MONO# 0.85 X1000 (0.11-0.59); MONO% 9.2 % (1.7-9.3); MPV 10.5 FL (7.4-10.4); NEUT# 7.27 X1000 (1.4-6.5); NEUT% 79.1 % (42.2-75.2); PLT 201 X1000 (130-400); RBC 3.31 XMIL (4.7-6.1); RDW 11.2 % (11.5-14.5)
[2018-11-27 07:12] LABS: ESTIMATED GFR > 60
[2018-11-27 07:14] LABS: AGAP 11; BUN 8 mg/dL (8-22); CALCIUM 8.5 mg/dL (8.8-10.2); CHLORIDE 90 mmol/L (98-107); COSMO 253; CREATININE 0.7 mg/dL (0.7-1.2); GLUCOSE 124 mg/dL (70-104); MAGNESIUM 1.9 mg/dL (1.5-2.7); POTASSIUM 4.1 mmol/L (3.5-5.1); SODIUM 126 mmol/L (136-145); TCO2 26 mmol/L (25-35)
[2018-11-27] MEDS ORDERED: VANCOMYCIN 1 GM/NS 1 GM/250 ML IVPB IV SCH (07:30)
[2018-11-27] MEDS ORDERED: TYLENOL PO PRN (08:48)
[2018-11-27] MEDS ORDERED: BASAGLAR SUBQ SCH (09:00)
[2018-11-27] MEDS ORDERED: VANCOMYCIN IV PER PHARMACY MISC SCH (09:00)
[2018-11-27] MEDS ORDERED: DIPRIVAN 1% ONE (09:23)
[2018-11-27] MEDS ORDERED: XYLOCAINE-MPF 2% ONE (09:23)
[2018-11-27] MEDS: VANCOMYCIN 1 GM/NS 1 GM/250 ML IVPB IV SCH ×2 (09:45→21:41)
[2018-11-27] MEDS ORDERED: INSULIN PEN NEEDLES ONE (10:08)
--- NOTE | 2018-11-27 10:39 | OPERATIVE NOTE ---
PROCEDURE DATE: 11/27/2018 PREOPERATIVE DIAGNOSIS: Right diabetic foot infection. POSTOPERATIVE DIAGNOSIS: Right diabetic foot infection. PROCEDURE: 1. Incision and drainage of right foot abscess. 2. Excisional debridement of skin, subcutaneous tissue and fascia of right foot greater than 20 square cm. SURGEON: Oleg Camarillo MD. ANESTHESIA: General. ESTIMATED BLOOD LOSS: 25 mL. COMPLICATIONS: None apparent. SPECIMENS: Pus for culture and sensitivity. FINDINGS: He had a large necrotic foot wound on the dorsum of the right foot involving the skin, subcutaneous tissues and fascia which exposed the extensor digitorum tendons and inter metatarsal muscles. The wound measured 7 x 7 x 11 /2 cm. TECHNIQUE: He was brought to the operating room placed supine on the table. General anesthesia was induced. He was prepped and draped in sterile fashion. A knife was used to sharply excise the necrotic skin on the dorsum of the right foot. Pus was drained and cultured. The necrotic skin and subcutaneous tissue was then sharply excised back to healthier bleeding tissues on the edges of the skin dorsally. The deep tissue was necrotic all the way down to the extensor digitorum tendons. All of this tissue was extensively debrided. It was very soupy. At the conclusion I did not see any obvious osteomyelitis. The viability of the remaining distal foot is still in question. I washed it out with saline and Vashe and packed it with Vashe moistened gauze. He tolerated this well and was sent to the recovery room in stable condition. cc: Oleg Camarillo MD
[2018-11-27] MEDS: MIRALAX PO SCH (11:36)
[2018-11-27] MEDS: COLACE PO SCH ×2 (11:36→20:38)
[2018-11-27] MEDS: LOXITANE PO SCH (11:37)
[2018-11-27] MEDS: SODIUM CHLORIDE PO SCH ×2 (11:37→20:38)
[2018-11-27] MEDS: BASAGLAR SUBQ SCH (11:38)
[2018-11-27] MEDS: HUMALOG SUBQ SCH ×3 (11:39→20:38)
--- NOTE | 2018-11-27 13:39 | PROGRESS NOTE ---
DATE: 11/27/2018 SUBJECTIVE: The patient resting in bed. OBJECTIVE: Vital signs: Temperature is 98.4 degrees, pulse 94, respiratory rate 18, blood pressure 138/65, oxygen saturation is 100%. HEENT: Atraumatic, normocephalic. Cardiovascular System: S1, S2. Respiratory system has evidence of good air entry bilaterally. Abdomen is soft, nontender. No masses felt. Extremities have the wound site to right foot dressed. LABORATORY DATA: WBC is 9.3, hematocrit is 30.2 with a platelet count of 201,000. Sodium is 126, potassium 4.1, chloride is 90, bicarbonate is 26, BUN is 8, creatinine 0.7. ASSESSMENT AND PLAN: 1. Right foot abscess status post incision and drainage. The patient will require local wound care as well as antibiotic management. 2. Diabetes mellitus. Maintain patient on sliding scale insulin. Monitor blood sugar levels. 3. Hypertension. Optimize blood pressure control. 4. Schizophrenia. Continue present psychiatric medication. 5. Hypertension. Continue current antihypertensive regimen. 6. Hyponatremia. Etiology not clear. We will check urine electrolytes, including TSH as well as a cortisol level and restrict water intake. cc: Sean Stephens MD
[2018-11-27] MEDS: NS 1,000 ML IV SCH (15:10)
[2018-11-27] MEDS: TYLENOL WITH CODEINE #3 PO PRN ×2 (15:17→22:45)
[2018-11-28] MEDS: ZOSYN 3.375 GM in NS 50 ML IV SCH ×5 (00:36→23:12)
[2018-11-28 01:01] LABS: UR CREAT RANDOM 54.3 mg/dL (14-26)
[2018-11-28] MEDS: PRILOSEC PO SCH (06:41)
[2018-11-28] MEDS: HUMALOG SUBQ SCH ×4 (06:41→21:55)
[2018-11-28 07:34] LABS: BASO# 0.02 X1000 (0.0-0.2); BASO% 0.2 % (0.0-0.8); EOS# 0.09 X1000 (0.0-0.7); EOS% 1.1 % (0.0-10.0); HEMATOCRIT 30.2 % (42.0-52.0); HEMOGLOBIN 10.4 g/dL (14.0-18.0); IMM GRAN# 0.02 X1000 (0.0-0.04); IMM GRAN% 0.2 % (0.0-0.5); LYMPH# 0.98 X1000 (1.2-3.4); LYMPH% 11.5 % (20.5-51.1); MCH 31.8 PG (27-31); MCHC 34.4 g/dL (33-37); MCV 92.4 FL (81-99); MONO# 0.75 X1000 (0.11-0.59); MONO% 8.8 % (1.7-9.3); MPV 9.7 FL (7.4-10.4); NEUT# 6.65 X1000 (1.4-6.5); NEUT% 78.2 % (42.2-75.2); PLT 341 X1000 (130-400); RBC 3.27 XMIL (4.7-6.1); RDW 11.2 % (11.5-14.5); WBC 8.51 X1000 (4.8-10.8)
[2018-11-28 07:41] LABS: AGAP 11; BUN 9 mg/dL (8-22); CALCIUM 8.8 mg/dL (8.8-10.2); CHLORIDE 98 mmol/L (98-107); COSMO 270; ESTIMATED GFR > 60; GLUCOSE 113 mg/dL (70-104); POTASSIUM 4.3 mmol/L (3.5-5.1); SODIUM 135 mmol/L (136-145); TCO2 26 mmol/L (25-35)
[2018-11-28] MEDS: BASAGLAR SUBQ SCH (08:35)
[2018-11-28] MEDS: SODIUM CHLORIDE PO SCH ×2 (08:35→20:15)
[2018-11-28] MEDS: LOXITANE PO SCH (08:35)
[2018-11-28] MEDS: COLACE PO SCH ×2 (08:35→20:15)
[2018-11-28] MEDS: MIRALAX PO SCH (08:35)
[2018-11-28] MEDS: TYLENOL WITH CODEINE #3 PO PRN ×2 (09:02→20:15)
[2018-11-28] MEDS: VANCOMYCIN 1 GM/NS 1 GM/250 ML IVPB IV SCH ×2 (10:45→23:12)
[2018-11-28] MEDS: NS 1,000 ML IV SCH ×2 (12:49→19:00)
--- NOTE | 2018-11-28 16:49 | PROGRESS NOTE ---
DATE: 11/28/2018 SUBJECTIVE: The patient is resting comfortable in bed. OBJECTIVE: Vital signs: Vital signs are as follows: Temperature is 97.7 degrees, pulse is 77, blood pressure is 139/71, oxygen saturation is 100%. HEENT: Atraumatic, normocephalic. Cardiovascular system: S1, S2. Respiratory system: Has evidence of good air entry bilaterally. Abdomen: Soft, nontender. No masses. Extremities: Has a wound site right foot dressed. LABS: WBC is 8.51, hematocrit is 30.2 with a platelet count of 341. Sodium is 135, potassium is 4.3, chloride is 98, bicarbonate 26. BUN is 9 and creatinine is 1.0. ASSESSMENT AND PLAN: 1. Right foot abscess status post incision and drainage. Continue local wound care, as well as antibiotics. 2. Diabetes mellitus. Continue blood sugar medications, as well as sliding scale insulin. 3. Hypertension. Continue current antihypertensive regimen. 4. Schizophrenia. Continue appropriate psych medications. 5. Hyponatremia, resolved. Improved. Follow up on sodium level. cc: Sean Stephens MD
--- NOTE | 2018-11-28 17:15 | GENERAL SURGERY PROGRESS NOTE ---
DATE: 11/28/2018 SUBJECTIVE: The patient says he feels a little better today. OBJECTIVE: Vital Signs: He is afebrile. Vital signs are stable. General: He is awake and alert, oriented x3. No acute distress. Extremities: The right foot wound was examined with the dressing removed. There is no gross purulence at this time. There remains some questionably viable soft tissues of the dorsal foot. There is some new granulation tissue. There is exposed extensor digitorum tendons and the toes appears somewhat ischemic. LABORATORY: White cell count 8.5. Electrolytes unremarkable. Culture results are growing gram- negative rods in the foot. ASSESSMENT AND PLAN: A 63-year-old male with right diabetic foot infection status post extensive debridement and drainage of abscess. He also has peripheral arterial disease. I would continue with the vancomycin and Zosyn at this time. I would continue dressing changes with Vashe moistened gauze twice a day for the next several days. We are watching to see if there is some wound healing and clearance of the infection. If this indeed happens, we will continue with therapy aimed at salvaging the foot. If it worsens, then he will at least need a transmetatarsal amputation or BKA and further vascular evaluation with Dr. Clark will be pursued. cc: Oleg Camarillo MD
[2018-11-29] MEDS: VANCOMYCIN 1 GM/NS 1 GM/250 ML IVPB IV SCH (00:16)
[2018-11-29] MEDS: ZOSYN 3.375 GM in NS 50 ML IV SCH (05:07)
[2018-11-29] MEDS: NS 1,000 ML IV SCH ×2 (05:11→19:57)
[2018-11-29] MEDS: PRILOSEC PO SCH (06:26)
[2018-11-29] MEDS: HUMALOG SUBQ SCH ×4 (06:27→21:23)
[2018-11-29 07:18] LABS: BASO# 0.03 X1000 (0.0-0.2); BASO% 0.4 % (0.0-0.8); EOS# 0.12 X1000 (0.0-0.7); EOS% 1.6 % (0.0-10.0); HEMATOCRIT 29.9 % (42.0-52.0); HEMOGLOBIN 10.3 g/dL (14.0-18.0); IMM GRAN# 0.03 X1000 (0.0-0.04); IMM GRAN% 0.4 % (0.0-0.5); LYMPH# 1.15 X1000 (1.2-3.4); MCH 32.2 PG (27-31); MCHC 34.4 g/dL (33-37); MCV 93.4 FL (81-99); MONO# 0.49 X1000 (0.11-0.59); MONO% 6.4 % (1.7-9.3); MPV 10.4 FL (7.4-10.4); NEUT# 5.87 X1000 (1.4-6.5); NEUT% 76.2 % (42.2-75.2); PLT 200 X1000 (130-400); RDW 11.1 % (11.5-14.5); WBC 7.69 X1000 (4.8-10.8)
[2018-11-29 07:52] LABS: AGAP 10; BUN 13 mg/dL (8-22); CALCIUM 8.6 mg/dL (8.8-10.2); CHLORIDE 99 mmol/L (98-107); COSMO 274; ESTIMATED GFR > 60; GLUCOSE 164 mg/dL (70-104); POTASSIUM 4.3 mmol/L (3.5-5.1); SODIUM 135 mmol/L (136-145); TCO2 26 mmol/L (25-35)
[2018-11-29] MEDS: TYLENOL WITH CODEINE #3 PO PRN ×2 (08:43→18:18)
[2018-11-29] MEDS: LOXITANE PO SCH (09:20)
[2018-11-29] MEDS: BASAGLAR SUBQ SCH (09:20)
[2018-11-29] MEDS: MIRALAX PO SCH (09:21)
[2018-11-29] MEDS: SODIUM CHLORIDE PO SCH ×2 (09:21→21:22)
[2018-11-29] MEDS: COLACE PO SCH ×2 (09:21→21:22)
--- NOTE | 2018-11-29 10:02 | GENERAL SURGERY PROGRESS NOTE ---
DATE: 11/29/2018 SUBJECTIVE: The patient is feeling better overall. OBJECTIVE: Vital Signs: He is afebrile. Vital signs are stable. General: He is awake, alert, oriented x3. No acute distress. Extremities: His right foot wound was examined with the dressings off. There is increasing granulation tissue on the proximal edge of the dorsal foot, however, there is more purulent drainage in between the metatarsals in the distal foot. I took an 11 blade and incised the soft tissue to allow better drainage of the purulent fluid. LABORATORY DATA: Reviewed and unremarkable. Wound culture positive for Serratia marcescens. ASSESSMENT AND PLAN: A 63-year-old male with diabetic foot infection and diabetic foot ulcer, now status post drainage and debridement. We will narrow his antibiotics to cover the Serratia. We will continue Katelyn wet-to-dry dressing changes with silver alginate through the weekend. If the purulence improves, then I plan one further debridement in the operating room and a wound VAC placement to try to stimulate granulation tissue over the tendons and salvage this foot. That is planned for Sunday. cc: Oleg Camarillo MD
[2018-11-29] MEDS ORDERED: ROCEPHIN 1 GM in NS 50 ML IV SCH (12:00)
--- NOTE | 2018-11-29 12:38 | PROGRESS NOTE ---
DATE: 11/29/2018 SUBJECTIVE: The patient is resting comfortably in bed. OBJECTIVE: Vital Signs: Vital signs are as follows: Temperature 97.8 degrees, pulse 81, respiratory rate 20, blood pressure is 140/64 and oxygenation is 100%. HEENT: Atraumatic, normocephalic. Cardiovascular system: S1, S2. Respiratory system: Has evidence of good air entry bilaterally. Abdomen: Soft. Nontender. No masses felt. Extremities: Wound site of right foot dressed. LABORATORY DATA: WBC 7.69, hematocrit is 29.9 with a platelet count of 200. Sodium is 135, potassium is 4.3, chloride is 99, bicarbonate 26. BUN is 13, creatinine is 1.0. ASSESSMENT AND PLAN: 1. Right foot abscess status post incision and drainage. Continue local wound care as well as antibiotics. Surgery following. Infectious Disease consulted for antibiotic management. 2. Diabetes mellitus. Continue blood sugar monitoring, as well as sliding scale insulin. 3. Hypertension. Continue current antihypertensive regimen. 4. Schizophrenia. Continue appropriate psychiatric medications. 5. Hyponatremia, improved. 6. Deep vein thrombosis prophylaxis. Sequential compression devices. 7. Gastrointestinal prophylaxis. Proton pump inhibitor. cc: Sean Stephens MD
--- NOTE | 2018-11-29 17:26 | INFECTIOUS DISEASE CONSULT REP ---
DATE: 11/29/2018 CONCLUSION: The patient is status post surgery performed by Dr. Camarillo on the patient's right foot Serratia abscess and gangrene. RECOMMENDATIONS: I agree with treating the patient with Rocephin. I have increased the dose to 2 g IV every 12 hours. When the patient goes home, I think he can be changed to p.o. Levaquin. DISCUSSION: The patient tells me approximately 11 to 12 days ago he started having swelling and erythema of his right foot. He did not have fever, but he said the foot was painful. He has undergone surgery performed by Dr. Camarillo. In his operative report, Dr. Camarillo said that he did not see any bone. The patient had an MRI of his right foot, and it did not show any evidence of osteomyelitis. The patient's CBC shows a white count of 7690, hemoglobin 10.3, and platelet count 200,000. Creatinine is 1. GFR is greater than 60. PAST MEDICAL HISTORY/REVIEW OF SYSTEMS: Eyes and ears: He does not have any problems seeing or hearing. Neck: No stiffness. Respiratory: No cough or shortness of breath. Cardiac: No chest pain or palpitations. Gastrointestinal: Patient states that he does have constipation, but he says it occurred only when he was put on medications and before that, he did not have any problem with constipation. Genitourinary: No dysuria or flank pain. Bones, joints, muscles: See present illness. Neurologic: No seizures. No loss of motor or sensory function. Integument: No rashes. 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 INFECTIOUS DISEASE HISTORY: Negative for pneumonia and UTI. FAMILY HISTORY: Positive for hypertension, diabetes mellitus, myocardial infarction, anxiety and panic attacks. SOCIAL HISTORY: [place] He is single. He does not drink alcoholic beverages, abuse drugs or smoke cigarettes. He does not have any pets at home. ALLERGIES: He has no known drug allergies. HOME MEDICATIONS: Include Docusate, loxapine and MiraLAX. PHYSICAL EXAMINATION: Vital Signs: Temperature is 98 degrees, pulse 95, respirations 18, blood pressure 158/65. The patient is 5 feet 7 inches tall and weighs 138 pounds. General: This is a somewhat ill-appearing, elderly male. He is in no acute distress. Head, eyes, ears, nose, and throat: He can hear my spoken words and see near objects. He did not have any caries noted or necrotic teeth. Neck: No pain with movement. Lungs: Clear to auscultation. Cardiovascular: Heart rate is regular. Abdomen: Soft and nontender. Extremities: The patient has a large dressing around the right foot. The dressing is intact. Neurologic: Patient is awake. He can move his extremities. There is no tremor. His sensation is intact to touch. His memory regarding his medical history appeared intact also. Integument: No rash noted. Thank you for the consult. cc: Vini Dawkins MD
[2018-11-29] MEDS ORDERED: ROCEPHIN 2 GM in NS 50 ML IV SCH (20:00)
[2018-11-29] MEDS: ROCEPHIN 2 GM in NS 50 ML IV SCH (21:22)
[2018-11-30] MEDS: HUMALOG SUBQ SCH ×4 (05:46→21:21)
[2018-11-30] MEDS: PRILOSEC PO SCH (06:06)
[2018-11-30] MEDS: TYLENOL WITH CODEINE #3 PO PRN ×2 (06:41→12:24)
[2018-11-30 07:36] LABS: BASO# 0.02 X1000 (0.0-0.2); BASO% 0.2 % (0.0-0.8); EOS# 0.11 X1000 (0.0-0.7); EOS% 1.3 % (0.0-10.0); HEMOGLOBIN 10.4 g/dL (14.0-18.0); LYMPH# 1.13 X1000 (1.2-3.4); LYMPH% 13.5 % (20.5-51.1); MCH 31.2 PG (27-31); MCHC 33.5 g/dL (33-37); MCV 93.1 FL (81-99); MONO# 0.56 X1000 (0.11-0.59); MONO% 6.7 % (1.7-9.3); MPV 10.1 FL (7.4-10.4); NEUT# 6.54 X1000 (1.4-6.5); NEUT% 78.3 % (42.2-75.2); PLT 310 X1000 (130-400); RBC 3.33 XMIL (4.7-6.1); RDW 11.2 % (11.5-14.5); WBC 8.36 X1000 (4.8-10.8)
[2018-11-30 08:07] LABS: AGAP 10; ALB/GLOB RATIO 0.6; ALBUMIN 2.7 g/dL (3.5-5.0); ALKALINE PHOSPHATASE 78 U/L (32-122); BUN 18 mg/dL (8-22); CHLORIDE 96 mmol/L (98-107); COSMO 271; CREATININE 0.9 mg/dL (0.7-1.2); ESTIMATED GFR > 60; GLUCOSE 154 mg/dL (70-104); GOT 19 U/L (10-34); GPT 21 U/L (10-44); POTASSIUM 4.3 mmol/L (3.5-5.1); SODIUM 133 mmol/L (136-145); TCO2 27 mmol/L (25-35); TOTAL BILIRUBIN 0.26 mg/dL (0.20-1.00); TOTAL PROTEIN 6.9 g/dL (6.3-8.3)
[2018-11-30] MEDS: COLACE PO SCH ×2 (09:56→20:11)
[2018-11-30] MEDS: BASAGLAR SUBQ SCH (09:56)
[2018-11-30] MEDS: LOXITANE PO SCH (09:56)
[2018-11-30] MEDS: SODIUM CHLORIDE PO SCH ×2 (09:56→20:11)
[2018-11-30] MEDS: MIRALAX PO SCH (09:56)
[2018-11-30] MEDS: ROCEPHIN 2 GM in NS 50 ML IV SCH ×2 (09:57→20:11)
--- NOTE | 2018-11-30 13:44 | PROGRESS NOTE ---
DATE: 11/30/2018 INTERVAL HISTORY: The patient has no new complaints. No acute events overnight. Denies significant pain in foot. REVIEW OF SYSTEMS: Twelve point review of systems negative except as per interval history. LABORATORY DATA: CBC essentially unchanged from previous. Sodium 133, potassium 4.3, BUN 18, creatinine 0.9, glucose 141 to 280. VITAL SIGNS: T-max 98.7 degrees, pulse 91, respirations 16, blood pressure 131/68, O2 saturation 100% on room air. PHYSICAL EXAMINATION: General: No acute distress. Vital signs: As above. HEENT: Normocephalic, atraumatic. Moist mucous membranes. No cervical adenopathy. Cardiovascular: Regular rate and rhythm. No murmurs, rubs, or gallops. Pulmonary: Clear to auscultation bilaterally. No wheezing, rales, or rhonchi. Abdomen: Soft, nontender, nondistended. Bowel sounds positive. Extremities: Peripheral pulses decreased but intact. Right foot heavily bandaged. Bandaging clean, dry, intact. Neurologic: Cranial nerves grossly intact. Slightly decreased sensation in toes. Otherwise no focal deficits identified. Psychiatric: Normal mood and affect. Awake, alert. Skin: No new rashes or lesions identified. ASSESSMENT AND PLAN: 1. Right foot abscess. The patient is status post I and D by Surgery. Infectious Disease is monitoring. Currently on antibiotics with Rocephin. Surgery planning to place wound VAC on Sunday. May be able to discharge after that pending further recommendations. 2. Diabetes mellitus. Control is suboptimal so far. We will increase basal insulin to 14 units daily and continue sliding scale insulin. 3. Hypertension. Reasonable control on current therapy. Continue monitoring. 4. History of schizophrenia. Continue home psychiatric medications. 5. Hyponatremia. Currently mild and symptomatic, improved from previous. Monitor labs. 6. Deep vein thrombosis prophylaxis. Bannos.
--- NOTE | 2018-11-30 14:22 | GENERAL SURGERY PROGRESS NOTE ---
DATE: 11/30/2018 SUBJECTIVE: The patient is doing okay. He has some pain in his foot. OBJECTIVE: Vital Signs: He is afebrile. Vital signs are stable. General: He is awake, alert, in no acute distress. Extremities: The right foot wound is examined. There continues to be some necrotic soft tissue between the tendons of his metatarsals. However, I do not see any gross purulence today. There is granulation tissue around the edges of the wound. LABORATORY: Reviewed and unremarkable. ASSESSMENT AND PLAN: A 63-year-old male with right diabetic foot infection, status post debridement and drainage. The plan will be to continue his antibiotics, and repeat foot debridement and washout on Sunday with probable wound VAC placement. cc: Oleg Camarillo MD
[2018-11-30] MEDS: NS 1,000 ML IV SCH (16:13)
[2018-12-01] MEDS: TYLENOL WITH CODEINE #3 PO PRN ×3 (00:58→22:10)
[2018-12-01] MEDS: HUMALOG SUBQ SCH ×4 (06:36→21:52)
[2018-12-01] MEDS: PRILOSEC PO SCH (06:40)
[2018-12-01] MEDS: MIRALAX PO SCH (08:35)
[2018-12-01] MEDS: ROCEPHIN 2 GM in NS 50 ML IV SCH ×2 (08:35→21:59)
[2018-12-01] MEDS: COLACE PO SCH ×2 (08:36→21:59)
[2018-12-01] MEDS: LOXITANE PO SCH (08:36)
[2018-12-01] MEDS: BASAGLAR SUBQ SCH (08:36)
[2018-12-01] MEDS: SODIUM CHLORIDE PO SCH ×2 (08:36→21:59)
[2018-12-01] MEDS ORDERED: INSULIN PEN NEEDLES ONE (08:58)
--- NOTE | 2018-12-01 11:14 | GENERAL SURGERY PROGRESS NOTE ---
DATE: 12/01/2018 SUBJECTIVE: The patient is doing okay. No new complaints. OBJECTIVE: He is afebrile. Vital signs are stable.General: He is awake and alert, no acute distress. Extremities: His right foot wound was examined. He does have granulation around the periphery of the wound, especially proximally. Distally, there is not much granulation. There is exposed extensor digitorum tendon. There is some slightly purulent drainage from under and around the tendons. LABORATORY DATA: None today. ASSESSMENT AND PLAN: A 63-year-old male with right diabetic foot infection, status post extensive debridement of the soft tissues on the dorsum of the foot. We will go back to the operating room tomorrow for further debridement and washout and probable wound VAC placement. Continue the antibiotics for Serratia which was cultured in the wound. Dr. Dawkins is also directing his antibiotic care. cc: Oleg Camarillo MD
[2018-12-01] MEDS: NS 1,000 ML IV SCH (12:41)
--- NOTE | 2018-12-01 15:05 | PROGRESS NOTE ---
DATE: 12/01/2018 SUBJECTIVE: Patient is resting in bed. OBJECTIVE: Vital Signs: Temperature 98.2 degrees, pulse 76, respiratory rate is 19, oxygen saturation is 100%. HEENT: Atraumatic, normocephalic. Cardiovascular: S1, S2. Respiratory: Has evidence of good entry bilaterally. Abdomen: Soft, nontender. No masses felt. Extremities: No evidence of edema. Central nervous system: No obvious focal deficits noted. Skin: Wound site, right foot dressed. LABORATORY DATA: Blood sugar 252. ASSESSMENT AND PLAN: 1. Right foot abscess status post incision and drainage. Continue local wound care as well as antibiotic treatment. 2. Diabetes mellitus. Continue blood sugar monitoring as well as sliding scale insulin. 3. Hypertension. Continue current antihypertensive regimen. 4. Schizophrenia. Continue appropriate psychiatric medications. 5. Hyponatremia, improved. Repeat sodium level. 6. Deep vein thrombosis prophylaxis. SCDs. 7. Gastrointestinal prophylaxis. PPI. cc: Sean Stephens MD MTDD
[2018-12-02] MEDS: PRILOSEC PO SCH (05:39)
[2018-12-02] MEDS: HUMALOG SUBQ SCH ×4 (05:39→21:35)
[2018-12-02 07:18] LABS: BASO# 0.04 X1000 (0.0-0.2); BASO% 0.5 % (0.0-0.8); EOS# 0.08 X1000 (0.0-0.7); EOS% 1.1 % (0.0-10.0); HEMATOCRIT 34.8 % (42.0-52.0); HEMOGLOBIN 12.1 g/dL (14.0-18.0); IMM GRAN# 0.04 X1000 (0.0-0.04); IMM GRAN% 0.5 % (0.0-0.5); LYMPH# 1.41 X1000 (1.2-3.4); LYMPH% 18.6 % (20.5-51.1); MCH 32.4 PG (27-31); MCHC 34.8 g/dL (33-37); MCV 93.3 FL (81-99); MONO# 0.54 X1000 (0.11-0.59); MONO% 7.1 % (1.7-9.3); MPV 10.2 FL (7.4-10.4); NEUT# 5.48 X1000 (1.4-6.5); NEUT% 72.2 % (42.2-75.2); PLT 230 X1000 (130-400); RBC 3.73 XMIL (4.7-6.1); RDW 11.5 % (11.5-14.5); WBC 7.59 X1000 (4.8-10.8)
[2018-12-02 07:41] LABS: AGAP 16; BUN 10 mg/dL (8-22); CALCIUM 9.4 mg/dL (8.8-10.2); CHLORIDE 100 mmol/L (98-107); COSMO 278; CREATININE 0.8 mg/dL (0.7-1.2); ESTIMATED GFR > 60; GLUCOSE 125 mg/dL (70-104); POTASSIUM 4.1 mmol/L (3.5-5.1); SODIUM 139 mmol/L (136-145); TCO2 23 mmol/L (25-35)
[2018-12-02] MEDS: ROCEPHIN 2 GM in NS 50 ML IV SCH ×2 (10:22→21:34)
[2018-12-02] MEDS: BASAGLAR SUBQ SCH (10:23)
[2018-12-02] MEDS: NS 1,000 ML IV SCH (10:23)
[2018-12-02] MEDS ORDERED: DIPRIVAN 1% ONE (11:56)
[2018-12-02] MEDS ORDERED: FENTANYL ONE (11:56)
[2018-12-02] MEDS ORDERED: DECADRON ONE (12:34)
[2018-12-02] MEDS ORDERED: ZOFRAN ONE (12:34)
[2018-12-02] MEDS: MORPHINE ONE ×3 (13:22→13:35)
--- NOTE | 2018-12-02 13:30 | PROGRESS NOTE ---
DATE: 12/02/2018 SUBJECTIVE: Patient resting in bed. Not in any obvious distress. OBJECTIVE: Vital signs: Temperature is 98.8 degrees, pulse is 111, respiratory rate 16, blood pressure 153/83, oxygen saturation 99%. HEENT: Atraumatic, normocephalic. Cardiovascular: S1, S2. Respiratory system: Has evidence of good air entry bilaterally. Abdomen: Soft, nontender. No masses. Extremities: Wound site right foot dressed. LABORATORY DATA: WBC 7.59, hematocrit is 34.8, with a platelet count of 230,000. Sodium is 139, potassium 4.1, chloride 100, bicarb 23, BUN is 10, creatinine 0.8. Cultures from the wound site shows evidence of Serratia marcescens. ASSESSMENT AND PLAN: 1. Right foot abscess status post incision and drainage. Continue local wound care as well as antibiotic treatment. Plans noted to take patient back to OR today. 2. Diabetes mellitus. Continue blood sugar monitoring as well as sliding scale insulin. 3. Hypertension. Continue current antihypertensive regimen. 4. Schizophrenia. Continue appropriate psychiatric medications. 5. Hyponatremia. Sodium level now corrected. 6. Deep vein thrombosis prophylaxis. Sequential compression devices. 7. Gastrointestinal prophylaxis. PPI. cc: Sean Stephens MD
--- NOTE | 2018-12-02 13:45 | OPERATIVE NOTE ---
PROCEDURE DATE: 12/02/2018 PREOPERATIVE DIAGNOSIS: Right diabetic foot infection and nonhealing surgical wound. POSTOPERATIVE DIAGNOSIS: Right diabetic foot infection and nonhealing surgical wound. PROCEDURE: 1. Debridement of skin, subcutaneous tissue and fascia greater than 20 square cm of right foot. 2. Placement of wound Vacuum-Assisted Closure. 3. Placement of AmnioFill allograft. SURGEON: Oleg Camarillo MD. ANESTHESIA: General. ESTIMATED BLOOD LOSS: 3 mL. COMPLICATIONS: None apparent. FINDINGS: The wound measured 7.5 x 7 x 1 cm. TECHNIQUE: The patient was brought to the operating room and placed supine on the table. General anesthesia was induced. He was prepped and draped in usual sterile fashion. Forceps and Metzenbaum scissors were used to sharply debride the subcutaneous tissue of the wound, including necrotic fascia and tendon tissue. The extensor digitorum tendons were mostly intact, but there were still significant amounts of necrotic tendinous tissue underneath the digitorum and portions of the digitorum tendons as well. Once this was debrided and excised, the wound was washed out with saline and Vashe. I then placed AmnioFill allograft over the wound bed and Adaptic gauze was placed over this. A wound VAC was then placed over this. We did have a little trouble obtaining the seal and the patient was transferred to the recovery room where the wound care nurse was going to assist in getting a good seal. There were no apparent complications. cc: Oleg Camarillo MD
[2018-12-02] MEDS ORDERED: HUMALOG SUBQ ONE (14:00)
[2018-12-02] MEDS: SODIUM CHLORIDE PO SCH ×2 (15:17→21:35)
[2018-12-02] MEDS: COLACE PO SCH ×2 (15:18→21:34)
[2018-12-02] MEDS: MIRALAX PO SCH (15:18)
[2018-12-02] MEDS: LOXITANE PO SCH (15:18)
--- NOTE | 2018-12-02 16:43 | INFECTIOUS DISEASE PROGRESS NO ---
DATE: 12/02/2018 PRESENT ILLNESS: Mr. Booker is being treated for a right foot diabetic wound with abscess and gangrene, which grew a Serratia. He is status post incision and drainage of that foot on this admission. Today he also had a repeat debridement with placement of a wound VAC. MEDICATIONS: He is receiving Rocephin 2 g IV every 12 hours. PHYSICAL EXAMINATION: Vital Signs: Temperature is 98.8 degrees, pulse rate 106, respiratory rate 16, blood pressure 158/90, O2 saturation is 100% on room air. General: This is a chronically ill appearing elderly gentleman, he is lying in bed currently in no acute distress. HEENT: Atraumatic, normocephalic. Oral mucous membranes are pink and moist. Conjunctivae are pink. Neck: Supple. Trachea is midline. Cardiovascular: Heart rate is regular. Respiratory: Lung sounds are clear to auscultation bilaterally. Abdomen: Soft, flat and nontender. Bowel sounds are active. Neurologic: The patient is awake, alert, oriented. Able to move around independently in the bed. Extremities: There is a postoperative dressing in place to the right lower extremity with a wound VAC connected. LAB & X-RAY: Today his WBC count is 7.59, hemoglobin 12.1, platelet count 230,000, creatinine is 0.8, estimated GFR >60. His right foot has grown Serratia. No imaging reports today. ASSESSMENT AND PLAN: Mr. Booker is status post his 2nd surgery this admission for a diabetic foot wound which has grown Serratia. He is receiving Rocephin, which we will continue at this time. Once he is appropriate for discharge, the plan will be to send him home on oral Levaquin. These plans have been discussed with and recommended by Dr. Dawkins. COMORBIDITIES: Include diabetes mellitus, schizophrenia and cigarette smoking. Dictated by EMILIE Suarez for Vini Dawkins MD This chart was documented by, EMILIE Suarez and accurately reflects the services performed, treatment plan and medical decisions as attested by the providers signature Vini Dawkins MD. cc: Vini Dawkins MD [facility]ITAL[facility]ita
[2018-12-02] MEDS: TYLENOL WITH CODEINE #3 PO PRN (21:33)
[2018-12-03] MEDS: NS 1,000 ML IV SCH ×2 (03:17→15:12)
[2018-12-03] MEDS: HUMALOG SUBQ SCH ×4 (06:01→22:36)
[2018-12-03] MEDS: PRILOSEC PO SCH (06:01)
[2018-12-03] MEDS: TYLENOL WITH CODEINE #3 PO PRN ×2 (06:05→22:26)
[2018-12-03] MEDS: SODIUM CHLORIDE PO SCH ×2 (10:11→22:27)
[2018-12-03] MEDS: COLACE PO SCH ×2 (10:11→22:27)
[2018-12-03] MEDS: MIRALAX PO SCH (10:11)
[2018-12-03] MEDS: LOXITANE PO SCH (10:11)
[2018-12-03] MEDS: BASAGLAR SUBQ SCH (10:12)
[2018-12-03] MEDS: ROCEPHIN 2 GM in NS 50 ML IV SCH ×2 (10:21→22:26)
--- NOTE | 2018-12-03 14:27 | PROGRESS NOTE ---
DATE: 12/03/2018 SUBJECTIVE: This morning Mr. Madrigal refers to be doing fairly okay, still hurting in his leg. OBJECTIVE: Vital signs: Blood pressure is 148/88, pulse of 78, respiration is 18, temperature is 97.8 degrees, patient was saturating 98% on room air. General exam: Mr. Booker is a 63-year-old gentleman. He is in bed in no distress. HEENT: Mucosa is pink and moist. Anicteric. Acyanotic. Neck: Supple. Chest: Clear to auscultation. No crepitations. No rhonchi. Cardiovascular: Regular rate and rhythm. No murmurs, no rubs, no gallops. Abdomen: Soft, nontender. Bowel sounds present. Extremities: No pedal edema. The right lower extremity has a sterile dressing over it, and the wound VAC is in place. RIVERBOAT MASTER: Patient is awake, alert, and follows commands. LABORATORY DATA: None for today. Glucose is 164. CURRENT MEDICATIONS: Have all been reviewed and no changes. ASSESSMENT: 1. Right diabetic foot infection with nonhealing surgical wound. The patient had a debridement of skin and subcutaneous tissue with the wound VAC placement yesterday. Surgery is on board. 2. Serratia marcescens wound infection of the right foot. The patient is on Rocephin. Infectious Disease is on board. 3. Diabetes mellitus type 2 with a presenting A1c of 8.0. The patient is currently on glargine 14 units, as well as sliding scale. We are going to add lispro with meals to cover for the meals. 4. Severe peripheral vascular disease with total occlusion of the right superficial femoral artery noted on a computed tomography angiography. We will start the patient on statin medication, as well as low-dose aspirin. cc: Alan Miranda MD
--- NOTE | 2018-12-03 14:54 | VASCULAR LAB ---
PROCEDURE NAME: Arterial Bilateral Legs - 11/25/2018 INDICATIONS: Decreased pulses, right leg, in a patient who smokes and is a diabetic. SHREDDER TENDER: Monica Wilkerson RVT. FINDINGS: Systolic brachial blood pressure on the right 129 mmHg, on the left 146 mmHg. Right high thigh 141 mmHg. Left high thigh 151 mmHg. Right low thigh 94 mmHg. Left low thigh is 157 mmHg. Right calf is a 87 mmHg. Left calf 141 mmHg. Right ankle 91 mmHg. Left ankle 132 mmHg. There is pulsatile flow in both feet and both great toes. At rest, the right ankle-brachial index is 0.62. The left ankle-brachial index is 0.90. INTERPRETATION: Significant right lower extremity femoral popliteal arterial disease, which is severe enough to cause claudication symptoms. There appear to be normal pulse waveforms involving the left lower extremity at rest. cc: MD Vipin Oviedo MD
--- NOTE | 2018-12-03 15:41 | Diag Imaging Result Doc PS360 ---
EXAM: CHEST-1 VIEW HISTORY: for rehab placement TECHNIQUE: Chest single view COMPARISON: None. FINDINGS: The lungs are well expanded. The heart is not enlarged. The vessels are not distended. There are no infiltrates. No effusion identified. IMPRESSION: Negative exam. Electronically signed by Cristofer Navarrete 12/03/2018 3:38 PM
[2018-12-03] MEDS ORDERED: HUMALOG IV SCH (17:00)
--- NOTE | 2018-12-03 17:23 | INFECTIOUS DISEASE PROGRESS NO ---
DATE: 12/03/2018 PRESENT ILLNESS: Mr. Booker is being treated for a diabetic foot ulcer on the right which is growing Serratia. He is status post incision and drainage of that foot, and repeat debridement with wound VAC done yesterday. MEDICATIONS: He is receiving Rocephin 2 g IV every 12 hours. PHYSICAL EXAMINATION: Vital Signs: Temperature is 97.8, pulse rate 107, respiratory rate 18, blood pressure 157/83. O2 saturation 100% on room air. General: This is a chronically ill- appearing elderly gentleman. He is sitting up in bed, currently in no acute distress. HEENT: Atraumatic, normocephalic. Oral mucous membranes are pink and moist. Conjunctivae are pink. Neck: Supple. Trachea is midline. Cardiovascular: Heart rate is regular. Respiratory: Lung sounds are clear to auscultation bilaterally. Abdomen: Soft, flat, nontender. Bowel sounds are active. Neurologic: He is awake, alert, oriented, and able to move around independently in the bed. Extremities: He has a wound VAC with an Dereck wrap to the right foot, not removed at this time. LABORATORY AND X-RAY: Chest x-ray this afternoon shows no infiltrates or effusions. No lab work today. ASSESSMENT AND PLAN: Mr. Booker has had two surgeries for his diabetic foot ulcer with gangrene and abscess on the right which grew Serratia. He currently has a wound VAC in place. The plan is for him to go to rehab once a bed is available. Initially, we had planned on sending him out on oral Levaquin. However, after reviewing the operative note, and considering the fact that he has had some tendon manipulation in surgery, we will avoid Levaquin due to possible issues with tendonitis. The plan will be for us to send him to rehab on Rocephin 2 g IV every 12 hours for 2 to 4 weeks. We will plan on seeing him back in our office in 2 weeks. An order has been put in for a PICC line placement tomorrow with appropriate labs to be drawn in the morning. These plans have been discussed with and recommended by Dr. Dawkins. COMORBIDITIES: For Mr. Booker include diabetes mellitus, schizophrenia and cigarette smoking. Dictated by EMILIE Suarez for Vini Dawkins MD This chart was documented by, EMILIE Suarez and accurately reflects the services performed, treatment plan and medical decisions as attested by the providers signature Vini Dawkins MD. cc: Vini Dawkins MD [facility]
--- NOTE | 2018-12-03 18:14 | GENERAL SURGERY PROGRESS NOTE ---
DATE: 12/03/2018 SUBJECTIVE: The patient is feeling better. No acute events overnight. OBJECTIVE: He is afebrile. Vital signs are stable.General: He is awake and alert, oriented x3. No acute distress. Extremities: The right foot wound is dressed with a wound VAC with a good seal. ASSESSMENT AND PLAN: A 63-year-old male with diabetic foot infection status post debridement and drainage. He has a nonhealing surgical wound. We will continue negative pressure wound therapy. We will check the wound tomorrow. I am anticipating his fitness for discharge to rehabilitation later this week, to follow up with me in the [facility]. cc: Oleg Camarillo MD
[2018-12-03] MEDS: CRESTOR PO SCH (22:27)
[2018-12-03] MEDS: PLETAL PO SCH (22:28)
[2018-12-04] MEDS: HUMALOG SUBQ SCH ×7 (06:05→22:45)
[2018-12-04] MEDS: PRILOSEC PO SCH (06:14)
[2018-12-04 07:47] LABS: BASO# 0.03 X1000 (0.0-0.2); BASO% 0.5 % (0.0-0.8); EOS% 1.8 % (0.0-10.0); HEMATOCRIT 34.6 % (42.0-52.0); HEMOGLOBIN 11.9 g/dL (14.0-18.0); IMM GRAN# 0.02 X1000 (0.0-0.04); IMM GRAN% 0.4 % (0.0-0.5); LYMPH# 1.22 X1000 (1.2-3.4); LYMPH% 21.7 % (20.5-51.1); MCH 31.9 PG (27-31); MCHC 34.4 g/dL (33-37); MCV 92.8 FL (81-99); MONO# 0.55 X1000 (0.11-0.59); MONO% 9.8 % (1.7-9.3); MPV 10.4 FL (7.4-10.4); NEUT# 3.69 X1000 (1.4-6.5); NEUT% 65.8 % (42.2-75.2); PLT 208 X1000 (130-400); RBC 3.73 XMIL (4.7-6.1); RDW 11.8 % (11.5-14.5); WBC 5.61 X1000 (4.8-10.8)
[2018-12-04 07:51] LABS: INR 1.04; PROTIME 14.4 Seconds (11.0-16.0)
[2018-12-04 08:09] LABS: AGAP 11; BUN 9 mg/dL (8-22); CALCIUM 9.4 mg/dL (8.8-10.2); CHLORIDE 101 mmol/L (98-107); COSMO 279; CREATININE 0.9 mg/dL (0.7-1.2); ESTIMATED GFR > 60; GLUCOSE 147 mg/dL (70-104); SODIUM 139 mmol/L (136-145); TCO2 27 mmol/L (25-35)
[2018-12-04] MEDS: ROCEPHIN 2 GM in NS 50 ML IV SCH ×2 (08:57→22:50)
[2018-12-04] MEDS: PLETAL PO SCH ×2 (08:58→22:39)
[2018-12-04] MEDS: SODIUM CHLORIDE PO SCH ×2 (08:58→22:46)
[2018-12-04] MEDS: MIRALAX PO SCH (08:58)
[2018-12-04] MEDS: COLACE PO SCH ×2 (08:59→22:39)
[2018-12-04] MEDS: LOXITANE PO SCH (08:59)
[2018-12-04] MEDS: ASPIRIN PO SCH (08:59)
[2018-12-04] MEDS: BASAGLAR SUBQ SCH (09:03)
[2018-12-04] MEDS: TYLENOL WITH CODEINE #3 PO PRN (09:45)
[2018-12-04] MEDS ORDERED: NS 250 ML ONE (10:12)
[2018-12-04] MEDS: NORCO-7.5 PO PRN (13:17)
[2018-12-04] MEDS: NS 1,000 ML IV SCH (15:46)
--- NOTE | 2018-12-04 18:39 | PROGRESS NOTE ---
DATE: 12/04/2018 SUBJECTIVE: Today Mr. Booker refers to be hurting and he was just requesting for his pain medications. OBJECTIVE: Vital Signs: Blood pressure is 113/57, pulse is 110, respiration is 18, temperature 98.1. Patient is saturating 100% on room air. General: Mr. Booker is a 63-year-old gentleman. He is in bed, no distress. HEENT: Mucosa is pink and moist. Anicteric. Acyanotic. Neck: Supple. Chest: Clear to auscultation. No crepitations. No rhonchi. Cardiovascular: Regular rate and rhythm. No murmurs, no rubs, no gallops. Abdomen: Soft. Bowel sounds present. Extremities: No pedal edema. The right lower extremity still has a sterile dressing and a wound VAC in place. Central Nervous System: Patient is awake, alert and oriented. LABORATORY DATA: CBC is unremarkable except for hemoglobin of 11.9. Chemistry is completely normal. CURRENT MEDICATIONS: Have also been reviewed. ASSESSMENT: 1. Right diabetic foot infection with nonhealing surgical wound. Patient is status post incision and drainage with wound VAC placement. Today is day #2. Surgery is on board. 2. Serratia marcescens wound infection of the right foot. The patient is currently on Rocephin. The plan is to continue with that for 4 weeks as per ID report. 3. Diabetes mellitus type 2, presenting A1c of 8.0. The patient is on insulin regimen. 4. Severe peripheral vascular disease. The patient is currently on statin and aspirin. Cilostazol has also been added. Echocardiogram was ordered to get a baseline functioning of the heart before Cilostazol; however, Mr. Booker has declined to do the echocardiogram. 5. Disposition: We are waiting final arrangements for Mr. Booker to be admitted to a rehab. cc: Alan Miranda MD
--- NOTE | 2018-12-04 19:12 | INFECTIOUS DISEASE PROGRESS NO ---
DATE: 12/04/2018 PRESENT ILLNESS: The patient has a diabetic foot ulcer which grew Serratia. The patient has had incision and drainage of the foot and repeat debridement. The patient currently has a VAC on his foot. MEDICATIONS: As mentioned above, the patient is on Rocephin 2 g IV every 12 hours. This is the 3rd day of treatment with Rocephin. PHYSICAL EXAMINATION: Vital Signs: Temperature is 98.1 degrees, pulse 110, respirations 18, blood pressure 112/56. General: This is a chronically ill-appearing, elderly male. He is in no acute distress. Head, eyes, ears, nose, and throat: He can hear my spoken words and can see near objects. He does not have any white patches on his tongue. Neck: No pain with movement. Lungs: Clear to auscultation. Cardiovascular: Heart rate is regular. Abdomen: Soft and nontender. Extremities: The patient's right foot has a VAC on it and has a dressing around that. The patient's right arm has a PICC. The PICC site is not swollen or draining or tender. Neurologic: The patient is awake. He can move his extremities. There is no tremor. LABORATORY AND X-RAY: There is no new radiographic study. The CBC shows a white cell count of 5610, hemoglobin is 11.9, and platelet count 208,000. Creatinine is 0.9. GFR is greater than 60. ASSESSMENT AND PLAN: The patient has had debridements of his foot and is on intravenous antibiotics. I plan to continue for a while at least Rocephin. COMORBIDITIES: The patient has diabetes mellitus, schizophrenia, and cigarette smoking. cc: Vini Dawkins MD
[2018-12-04] MEDS: CRESTOR PO SCH (22:39)
[2018-12-05] MEDS: NORCO-7.5 PO PRN ×2 (04:25→13:23)
[2018-12-05] MEDS: PRILOSEC PO SCH (06:15)
[2018-12-05] MEDS: HUMALOG SUBQ SCH ×4 (06:16→12:02)
[2018-12-05] MEDS: LOXITANE PO SCH (08:25)
[2018-12-05] MEDS: PLETAL PO SCH (08:26)
[2018-12-05] MEDS: SODIUM CHLORIDE PO SCH (08:26)
[2018-12-05] MEDS: COLACE PO SCH (08:26)
[2018-12-05] MEDS: ASPIRIN PO SCH (08:26)
[2018-12-05] MEDS: MIRALAX PO SCH (08:26)
[2018-12-05] MEDS: ROCEPHIN 2 GM in NS 50 ML IV SCH (08:27)
[2018-12-05] MEDS: BASAGLAR SUBQ SCH (08:30)
--- NOTE | 2018-12-05 10:53 | GENERAL SURGERY PROGRESS NOTE ---
DATE: 12/05/2018 SUBJECTIVE: The patient is doing okay. No acute events overnight. OBJECTIVE: He is afebrile. Vital signs are stable.General: He is awake, alert, oriented x3. No acute distress. Extremities: The right foot wound is bandaged with the wound VAC. There is a good seal. ASSESSMENT/PLAN: 63-year-old male with right diabetic foot infection status post debridement and drainage of abscess and necrotic tissue. The wound is being managed with negative pressure wound therapy. This is somewhat difficult to place but helpful to establish granulation tissue for future healing. There are multiple exposed tendons which were also being protected. The plan is for him to go to rehab soon with continued negative pressure wound therapy and antibiotics as well. I will see him back in my office in a couple of weeks for a wound check. cc: Oleg Camarillo MD
[2018-12-05 11:18] VITALS: BP 128/63
[2018-12-05] MEDS: NS 1,000 ML IV SCH (12:03)
--- NOTE | 2018-12-05 14:42 | DISCHARGE SUMMARY ---
ADMISSION DATE: 11/18/2018 DISCHARGE DATE: 12/05/2018 DISPOSITION: [facility]. FOLLOWUP: 1. [facility]. 2. Dr. Camarillo. 3. Dr. Dawkins. CONSULTATIONS DURING THIS ADMISSION: ID was consulted, patient was seen by Dr. Dawkins. Surgery was consulted, patient was seen by Dr. Camarillo. INVASIVE PROCEDURES DONE DURING THIS ADMISSION: I and D of the right foot abscess was initially done by Dr. Camarillo on 11/27/2018. A 2nd intervention was done on 12/02/2018, which included a debridement of skin, subcutaneous tissue and fascia, placement of wound VAC to assist closure. ADMISSION DIAGNOSES: 1. Leukocytosis. 2. Hyponatremia. 3. Thrombocytopenia. 4. Diabetes with hyperglycemia. DISCHARGE DIAGNOSES: 1. Right diabetic foot infection with nonhealing surgical wound. The patient is status post I and D 2 times. Currently also has a wound VAC to assist closure. 2. Serratia marcescens wound infection of the right foot. The patient is on Rocephin and the plan is to continue for 4 weeks. 3. Diabetes mellitus with presenting A1c of 8.1. Patient is on insulin regimen. 4. Severe peripheral vascular disease. The patient is on statin, aspirin, cilostazol. DISCHARGE MEDICATIONS: 1. MiraLAX. 2. Colace 100 mg b.i.d. 3. Insulin glargine 40 units subcutaneously a.m. 4. Crestor 20 mg p.o. at bedtime. 5. [facility] 1 tablet q.4 p.r.n. 6. Cilostazol 100 mg b.i.d. 7. Aspirin 81 mg daily. 8. Omeprazole 40 mg daily. PRESENTING COMPLAINT: Pain to foot. IMAGING STUDIES OF SIGNIFICANCE: 1. A foot x-ray was initially done that shows soft tissue edema. No bony abnormality. 2. A lower extremity MRI shows cellulitis. No definite evidence of osteomyelitis. 3. Extremity arterial Doppler showed significant right lower extremity femoropopliteal arterial disease which is severe enough to cause claudication. 4. CTA of the right lower extremity show multiple areas of atherosclerotic narrowing. There is occlusion of the distal right superficial femoral artery with reconstitution at the proximal right popliteal artery. HISTORY OF PRESENTING COMPLAINT: Mr. Booker is a 63-year-old gentleman who has a history of diabetes, started having some erythematous changes to the left foot for about 4 days prior to admission. Denies fever and chills. He came to the emergency department where he was evaluated. At the time, his white cell count was elevated. The thought was that he probably had some infection going on. He was initially admitted to [place] for medical management. HOSPITAL COURSE: Mr. Booker was in [place] for about a week and was subsequently transferred to [facility] for higher level of care because of nonhealing foot infection. Upon presentation, patient was seen by Infectious Disease and Surgery. There was an initial intervention done by Dr. Camarillo. Subsequently, because of nonhealing, a 2nd intervention was done. A wound VAC was applied and Wound Care was also consulted. Throughout the hospital course, Mr. Booker continues to be significantly stable. His cultures from the wound came back positive for Serratia marcescens. Antibiotics were tailored toward this pathogen. Mr. Booker also had Doppler studies as well as a CTA that show significant narrowing of the right lower extremity arterial circulation, which Surgery was aware. The patient was started on aspirin, statin and cilostazol. Echocardiogram was ordered to have a baseline EF because of the cilostazol long-term heart complication. However, Mr. Booker declined. This morning, he refers to be feeling fairly okay. Still has some pains in the foot, but he is going to continue getting wound care and physical rehabilitation at the other SNF. PHYSICAL EXAMINATION: Vital signs: This morning, blood pressure is 128/63, pulse 101, respiration is 18, temperature 97.6 degrees. General: Mr. Booker is a 63-year-old . He is in bed. He seems to be in fair condition and he is stable for discharge today. DISCHARGE INSTRUCTIONS: All the discharge instructions have been discussed with him and he voiced understanding. I have also gone over his discharge medications with him. TIME SPENT: For discharge is 36 minutes. cc: MD Oleg Royal MD Leroy F. Harris, MD MTDD
== END 2018-12-05 15:41 | DRG 623 ==
LOC: P.ED 14:55 → SUATTDRO 17:43 → P.MEDSURG 17:43 → 3N 11-27 08:40
PROVIDERS: ATTEND Internal Medicine
CPT/HCPCS: 36569; 71010; 71045; 73630; 73706; 73718; 80048; 80053; 80202; 82533; 82570; 82948; 83036; 83605; 83735; 83935; 84300; 84443; 85025; 85027; 85049; 85610; 87040; 87070; 87075; 87077; 87186; 93306; 93923; 96361; 96365; 96375; 97110; 97162; 97165; 97530; 97535; 99285; A9270; J0696; J1100; J1650; J1815; J2270; J2405; J2543; J3010; J3370; J7030; J7040; J7050; Q9967; XXXXX